=== PATIENT | male | born 1965 | race Caucasian/White ===

== ENCOUNTER 2018-12-26 12:33 | Inpatient (IN) ==
[2018-12-26 15:51] LABS: BASO# 0.05 X1000 (0.0-0.2); BASO% 0.6 % (0.0-0.8); EOS# 0.14 X1000 (0.0-0.7); EOS% 1.7 % (0.0-10.0); HEMATOCRIT 59.8 % (42.0-52.0); HEMOGLOBIN 19.1 g/dL (14.0-18.0); IMM GRAN# 0.03 X1000 (0.0-0.04); IMM GRAN% 0.4 % (0.0-0.5); LYMPH# 1.86 X1000 (1.2-3.4); LYMPH% 22.5 % (20.5-51.1); MCH 29.8 PG (27-31); MCHC 31.9 g/dL (33-37); MCV 93.4 FL (81-99); MONO# 0.53 X1000 (0.11-0.59); MONO% 6.4 % (1.7-9.3); MPV 9.4 FL (7.4-10.4); NEUT# 5.67 X1000 (1.4-6.5); NEUT% 68.4 % (42.2-75.2); PLT 178 X1000 (130-400); RDW 14.7 % (11.5-14.5); WBC 8.28 X1000 (4.8-10.8)
[2018-12-26 15:56] LABS: INR 0.89; PROTIME 12.8 Seconds (11.0-16.0)
[2018-12-26 15:57] LABS: PTT 29.8 Seconds (22.3-41.8)
[2018-12-26 16:19] LABS: AGAP 13; ALB/GLOB RATIO 1.1; ALBUMIN 4.2 g/dL (3.5-5.0); ALKALINE PHOSPHATASE 104 U/L (32-122); BUN 12 mg/dL (8-22); CALCIUM 9.6 mg/dL (8.8-10.2); CHLORIDE 96 mmol/L (98-107); COSMO 280; CREATININE 0.9 mg/dL (0.7-1.2); ESTIMATED GFR > 60; GLUCOSE 117 mg/dL (70-104); GOT 16 U/L (10-34); GPT 22 U/L (10-44); SODIUM 140 mmol/L (136-145); TCO2 31 mmol/L (25-35); TOTAL BILIRUBIN 0.34 mg/dL (0.20-1.00); TOTAL PROTEIN 8.1 g/dL (6.3-8.3)
--- NOTE | 2018-12-26 16:22 | PROVIDER DOCUMENTATION ---
This chart was entered by Hilda Taylor Scribe, acting as scribe for Sumi Munoz MD. HPI-General Adult - General Chief Complaint: High Blood Sugar Stated Complaint: UNRESPONSIVE Time Seen by Provider: 12/26/18 14:56 Source: patient Allergies/Adverse Reactions: Patient Allergies Allergy/AdvReac Type Severity Reaction Status Date / Time No Known Allergies Allergy Verified 12/26/18 14:19 Home Medications: Home Medication List Medication Instructions Recorded Confirmed Last Taken Type Albuterol Sulfate Inhaler 2 puff INH Q6H PRN PRN #1 inhaler 02/03/15 Unknown Rx [Ventolin Hfa] Amoxicillin [Amoxil] 875 mg PO Q12HR #20 tablet 02/03/15 Unknown Rx Aspirin [Aspirin EC] 81 mg PO DAILY 02/03/15 02/03/15 02/03/15 04:00 History Cyclobenzaprine [Flexeril] 10 mg PO TID PRN PRN #12 tablet 02/03/15 Unknown Rx Prednisone 20 mg PO DAILY #10 tablet 02/03/15 Unknown Rx - History of Present Illness -Gen Adult Nature of Presenting Problems: Patient is a 53 year old male who presents to the ED via EMS for elevated blood sugar. Patient's sister in law states patient's blood sugar was in the 400's and the family was having a hard time waking the patient up. EMS states FSBS was 117 on their arrival. Patient denies chest pain. Patient states he is on 4 L of home O2. Location of Pain/Injury: reports: none Pain Radiation: reports: no radiation Quality of Pain: reports: none Severity: reports: mild Onset/Duration: reports: just prior to arrival Timing: reports: gone now Context/Activities at Onset: reports: light activity Modifying Factors: improves with: nothing Associated Symptoms: reports: denies symptoms Similar Symptoms Previously?: No Recently seen or treated by another doctor?: No - Diabetes Related Context Context: reports: high blood sugar Review of Systems - Adult - REVIEW OF SYSTEMS - ADULT Constitutional: reports: no symptoms reported Eyes: reports: no symptoms reported Ears, Nose, Mouth & Throat: reports: no symptoms reported Cardiovascular: reports: no symptoms reported Respiratory: reports: no symptoms reported Gastrointestinal: reports: no symptoms reported Genitourinary: reports: no symptoms reported Musculoskeletal: reports: no symptoms reported Integumentary: reports: no symptoms reported Neurological: reports: no symptoms reported Psychiatric: reports: no symptoms reported Endocrine: reports: no symptoms reported Hematologic/Lymphatic: reports: no symptoms reported Allergic/Immunologic: reports: no symptoms reported All Other Systems: Reviewed and Negative Past History - Adult - PAST MEDICAL HISTORY-ADULT Review of Records: reports: Nursing Assessment Review, Medications Reviewed, Social history reviewed & non-contributory. Major Childhood Illnesses: reports: denies history Cardiovascular: reports: CHF Respiratory: reports: sleep apnea Gastrointestinal: reports: GERD Obstetrical/Gynecological: reports: denies history Genitourinary: reports: denies history Musculoskeletal: reports: denies history Neurological: reports: denies history Psychiatric: reports: denies history Endocrine/Immune: reports: Diabetes Other Conditions: reports: denies history - PRIOR SURGERIES/PROCEDURES Surgical/Procedure History: reports: reviewed, not pertinent - IMMUNIZATION STATUS Childhood Immunizations: See Nurse Assessment Flu Vaccine: See Nurse Assessment - FAMILY HISTORY Family History: reviewed, not pertinent - SOCIAL HISTORY Smoking: cigarettes, greater than 1 pack/day Provider spent 3-5 mins advising pt. on dangers of tobacco.: Discussed manners to quit use, and f/u contacts for add'l counseling. Substance Use: alcohol, marijuana Living Situation: family Physical Exam-General - PHYSICAL EXAM-ADULT Initial Vital Signs Reviewed: Yes - CONSTITUTIONAL General Appearance: alert, no apparent distress, obese - NECK Neck: non-tender, normal inspection - RESPIRATORY Respiratory: chest non-tender, lungs clear, normal breath sounds - CARDIOVASCULAR Cardiovascular: normal peripheral pulses, regular rate, rhythm - GASTROINTESTINAL (ABDOMEN) Abdominal Exam: normal bowel sounds, non tender, soft - MUSCULOSKELETAL Extremity: erythema (bilateral lower extremities), swelling (bilateral lower extremities), tenderness (bilateral lower extremities), other (venous dermatitis to bilateral lower extremities) - NEUROLOGIC Neurologic: grossly normal - PSYCHIATRIC Psych/Mental Status: normal mood/affect, oriented x 3 Progress - PLAN OF CARE/RESULTS Progress/Plan/Lab Results: Vital Signs - 8 hr 12/26/18 12:36 12/26/18 14:18 12/26/18 14:42 Temperature 97.8 F 98.0 F Pulse Rate 81 78 74 Respiratory Rate 18 16 20 Blood Pressure 178/84 145/89 145/89 O2 Sat by Pulse Oximetry 98 94 L 92 L Orders Category Date Time Status Cardiac Monitoring DIRECTED Care 12/26/18 15:06 Active Finger Stick Blood Sugar (ED) DIRECTED Care 12/26/18 15:06 Active Misc. NRSG Communication Order DIRECTED Care 12/26/18 15:06 Active Saline Loc NOW Care 12/26/18 15:06 Active CBC WITH ELECTRONIC DIFF [HEME] Stat Lab 12/26/18 15:06 Uncollected COMPREHENSIVE METABOLIC PANEL [CHEM] Stat Lab 12/26/18 15:06 Uncollected PROTIME WITH INR [COAG] Stat Lab 12/26/18 15:06 Uncollected PTT [COAG] Stat Lab 12/26/18 15:06 Uncollected TROPONIN T Stat Lab 12/26/18 15:06 Uncollected URINALYSIS W/POSS RFLX CULT [URINALYSIS] Stat Lab 12/26/18 15:06 Uncollected EKG [EKG] Stat Ther 12/26/18 15:06 Ordered Result Diagrams: 12/27/18 04:54 12/27/18 04:54 - REASSESSMENT Reassessment #1 Time Reassessed: 17:16 Status: improving - CONSULTS/PCP/HOSPITALIST Notification #1 *Consult/PCP/Hospitalist*: CONG Blakely for Hospitalist Time Discussed: 17:48 Reason/Comments: Dr. Munoz consulted with Zora about patient. Consult Disposition: Will see in ED, Admit Departure - Departure Date of Disposition Decision: 12/26/18 Time of Disposition Decision: 17:49 DIAGNOSIS: Hypercapnic respiratory failure Disposition: ADMITTED INPATIENT 09 Certified Medical Emergency: Emergent Condition: Stable - Critical Care Note This patient required my direct & personal management of CC.: Yes Total Time (mins): 31 Critical Care Statement: This patient required my direct personal management to treat or rule out processes, the absence of which, could potentiallly result in sudden, clinically significant life or limb threatening deterioration. Attestation - Physician/ ESTRELLITA Attestation The physician spent face to face time with patient:: Yes Advanced Practice Provider documentation review:: Supervising physician onsite and consulted in the evaluation and care of this patient. The physician did have a face to face encounter with the patient. This chart was documented by the indicated scribe, (Hilda Taylor Scribe) and accurately reflects the services I performed and decisions made by me, Sumi Munoz MD, as attested by the provider's signature.
[2018-12-26 16:28] LABS: URINE SOURCE CLEAN CATCH
[2018-12-26 16:38] LABS: BILIRUBIN URINE NEGATIVE (NEGATIVE); BLOOD URINE MODERATE (NEGATIVE); COLOR YELLOW; GLUCOSE URINE NEGATIVE (NEGATIVE); KETONE URINE NEGATIVE (NEGATIVE); LEUKOCYTES URINE NEGATIVE (NEGATIVE); NITRITE URINE NEGATIVE (NEGATIVE); PH URINE 6.5; PROTEIN URINE >600 mg/dL (NEGATIVE); SP GRAVITY URINE 1.015; TURBIDITY URINE CLEAR (CLEAR); UR EPITHELIAL CELLS <10 /HPF (<10); URINE BACTERIA NEGATIVE /HPF; URINE RBC <10 /HPF (<10); URINE WBC <10 /HPF (<10); UROBILINOGEN URINE NORMAL (NORMAL)
[2018-12-26 17:39] LABS: ALLEN TEST YES; BE 5.3 mmoll (-3.0-3.0); BLOOD TYPE ARTERIAL; HCO3-(ACT) 28.4 mmoll (20.0-26.0); METHB 0.5 % (0.0-1.5); O2(CT) 20.4 mL/dL (15.0-23.0); SAMPLE BLOOD; SAO2 84.1 % (95.0-100.0); THB 18.1 g/dL (11.5-17.4); pH(98.6) 7.24 (7.35-7.45)
[2018-12-26 17:43] LABS: MODALITY CANNULA; O2HB 80.6 % (95.0-99.0); PCO2(98.6) 87 mmHg (35-45); PO2(98.6) 46 mmHg (60-100)
--- NOTE | 2018-12-26 18:18 | Diag Imaging Result Doc PS360 ---
EXAM: CT HEAD W/O CONTRAST INDICATION: Altered mental status, Polycythemia Vera TECHNIQUE: This exam was performed using automated exposure control, adjustment of mA or kV according to patient size, and/or use of iterative reconstruction technique. COMPARISON: None. FINDINGS: There is a 9 mm ringlike mass involving the subcortical white matter of the left frontal lobe with surrounding vasogenic edema that is highly suspicious for neoplasm, likely a metastatic lesion from an unknown primary. There is no hydrocephalus and no evidence of midline shift. No other intracranial mass can be identified. No acute infarct is identified. The surrounding soft tissues and bony structures are essentially unremarkable. IMPRESSION: Left frontal lobe 9 mm mass with surrounding vasogenic edema that is suspicious for neoplasm, probably metastatic disease from an unknown primary. Electronically signed by Milton Pruitt 12/26/2018 6:17 PM
--- NOTE | 2018-12-26 19:28 | Diag Imaging Result Doc PS360 ---
EXAM: CHEST-PORTABLE INDICATION: COPD TECHNIQUE: One view COMPARISON: 02/03/2015 FINDINGS: The lungs are grossly clear. There is no discrete pleural fluid collection or pneumothorax. The cardiomediastinal silhouette and central vasculature are grossly unremarkable accounting for magnification from AP technique. IMPRESSION: No evidence of acute pathology by plain radiograph. Electronically signed by Milton Pruitt 12/26/2018 7:27 PM
[2018-12-26] MEDS ORDERED: VANCOMYCIN IV PER PHARMACY MISC SCH (21:01)
[2018-12-26] MEDS ORDERED: NS 1,000 ML IV SCH (21:01)
[2018-12-26] MEDS: HUMALOG SUBQ SCH (21:01)
[2018-12-26] MEDS: DUONEB (A & A) INH SCH ×2 (21:01→23:30)
[2018-12-26] MEDS ORDERED: ZOFRAN IV PRN (21:01)
[2018-12-26] MEDS ORDERED: DUONEB (A & A) INH PRN (21:01)
[2018-12-26] MEDS ORDERED: LEVAQUIN 500 MG/D5W 500 MG/100 ML IVPB IV SCH (21:01)
[2018-12-26] MEDS ORDERED: TYLENOL PO PRN (21:08)
[2018-12-26] MEDS: ZOSYN 3.375 GM in NS 50 ML IV SCH (21:15)
[2018-12-26 21:26] LABS: ALLEN TEST YES; BE 6.6 mmoll (-3.0-3.0); BLOOD TYPE ARTERIAL; HCO3-(ACT) 29.8 mmoll (20.0-26.0); O2(CT) 22.8 mL/dL (15.0-23.0); O2HB 89.6 % (95.0-99.0); PO2(98.6) 71 mmHg (60-100); SAMPLE BLOOD; SAO2 93.3 % (95.0-100.0); THB 18.1 g/dL (11.5-17.4)
[2018-12-26 21:27] LABS: MODALITY BI PAP
[2018-12-26 21:29] LABS: PCO2(98.6) 103 mmHg (35-45)
[2018-12-26] MEDS ORDERED: VANCOMYCIN 2,000 MG in NS 500 ML IV SCH (23:00)
[2018-12-26] MEDS: MORPHINE IV PRN (23:53)
[2018-12-26] MEDS: SOLU-MEDROL IV SCH (23:53)
[2018-12-27] MEDS: ZOSYN 3.375 GM in NS 50 ML IV SCH ×3 (02:15→08:24)
[2018-12-27] MEDS: DUONEB (A & A) INH SCH ×6 (03:26→23:38)
--- NOTE | 2018-12-27 03:46 | HISTORY AND PHYSICAL ---
PRIMARY CARE PROVIDER: CONG Webb CHIEF COMPLAINT: Per [id number] at bedside, he has been feeling bad over the last couple of weeks. He has had increase in bilateral lower extremity swelling. HISTORY OF PRESENT ILLNESS: They called EMS secondary to not being able to wake him up today. He carries a past medical history of COPD on home O2 and takes Lasix as his only home medication for heart failure. Workup in the ED revealed acute hypoxemic hypercarbic respiratory failure. He was placed on BiPAP. Head CT and chest x-ray are currently pending. He will be admitted to the ICU on BiPAP with a pulmonary consult. PAST MEDICAL HISTORY: Hypertension, COPD on home O2, congestive heart failure, diabetes mellitus. PAST SURGICAL HISTORY: Reported none. FAMILY HISTORY: Unknown. SOCIAL HISTORY: Patient is a 3-jhok-nwy-day smoker. He lives at home with his , who is homebound. ALLERGIES: No known drug allergies. HOME MEDICATIONS: Have not been reconciled. Per patient and [id number], he only takes Lasix at home. REVIEW OF SYSTEMS: On 14 point review of systems, the patient reported shortness of breath, bilateral lower extremity swelling. He did report generalized not feeling well over the last few weeks and bilateral lower extremity edema. He denied any headache, chest pain, nausea/vomiting, diarrhea. PHYSICAL EXAMINATION: VITAL SIGNS: Temperature is 97.8 degrees, heart rate 63, respirations 15, blood pressure 180/93, O2 is 93% on BiPAP. GENERAL: Mr. Puri is sitting up in the stretcher in no acute distress on BiPAP. HEENT: He does have some periorbital edema. Atraumatic, normocephalic. DUANE. NECK: Supple. Trachea midline. CARDIOVASCULAR: S1, S2 appreciated. No murmurs, gallops, or rubs noted. RESPIRATORY: Lung sounds could not appreciate much air movement throughout all lung buenrostro, bilaterally decreased in the bases. Did not appreciate any rales, rhonchi, or wheezes. GASTROINTESTINAL: Obese, soft, nontender. Hypoactive bowel sounds 4 quadrants. EXTREMITIES: Bilateral lower extremities were warm to the touch and erythematous. There was no oozing. NEUROLOGICAL: No focal deficits noted. He follows commands. He answered questions as much as he could with the BiPAP on. Most history was taken from the fprvmf-od-vqz at bedside. DIAGNOSTIC DATA: Pending head CT. Pending chest x-ray. Pending EKG. LABORATORY DATA: White count 8, hemoglobin 19, hematocrit 59, platelet count is 178,000. ABG: pH 7.24, pCO2 of 87, PO2 of 46, bicarbonate 28, base excess 5.3, oxyhemoglobin was 80.6, O2 saturation 84% on 3 L nasal cannula. Sodium 140, potassium 5.0, BUN 12, creatinine 0.9, blood glucose is 117. Troponin less than 0.010. Urinalysis was negative. ASSESSMENT AND PLAN: 1. Acute hypoxemic hypoxic respiratory failure secondary to chronic obstructive pulmonary disease (COPD) exacerbation. We are currently pending chest x-ray. We will continue with IV antibiotics, bronchodilators, BiPAP. Reassess his ABG. Aggressive pulmonary toilet. Place him in the ICU for observation overnight. Consult Pulmonology. Continue with IV steroids. 2. Chronic obstructive pulmonary disease (COPD) exacerbation. See #1. 3. Metabolic encephalopathy secondary to numbers [address] is currently pending. The patient does now seem more awake and alert while on BiPAP. We will continue to monitor. 4. 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 We will continue with gentle hydration. DVT prophylaxis with a Lovenox. Possibly will need to be discharged on aspirin. 5. Diabetes mellitus, type 2. We will continue with patterned blood sugars and sliding scale insulin. Check a hemoglobin A1c. 6. Bilateral lower extremity cellulitis. We will continue with IV antibiotics. 7. History of congestive heart failure. Patient does take p.o. Lasix. We will check a proBNP. Continue to follow his chest x-ray. 8. Brain metastasis. Will order a CT of the chest abdomen and pelvis. Will consult oncology for further recommendations. Further recommendation to follow physician evaluation, laboratory, and diagnostic data. Dictated by CONG Barrera for Cindy Rodriguez MD cc: MD Demi Aragon MD I performed a face to face encounter on the patient. I reviewed all labs and imaging on the patient. I agree with the H&P as dictated. The patient presented to the ER with a chief complaint of generalized weakness, respiratory failure and swelling in his lower extremities. On exam, the patient as alert and on BIPAP. His breath sounds are coarse to auscultation bilaterally. He has 3+ edema in his lower extremities with erythema. The patient will be admitted with a diagnosis of acute on chronic hypercapnic and hypoxemic respiratory failure, bilateral lower extremity cellulitis, polycythemia, and brain metastasis. The patient is critically ill and will be admitted to the ICU. Will continue on BIPAP support. Blood and sputum cultures have been ordered. Will start broad spectrum antibiotics and bronchodilator therapy. Will also consult the oncologist due to brain metastasis seen on CT of the head. The church administrator will also be consulted. MAYUR
[2018-12-27 05:09] LABS: BASO# 0.02 X1000 (0.0-0.2); BASO% 0.2 % (0.0-0.8); EOS# 0.03 X1000 (0.0-0.7); EOS% 0.3 % (0.0-10.0); HEMATOCRIT 60.7 % (42.0-52.0); HEMOGLOBIN 18.4 g/dL (14.0-18.0); IMM GRAN# 0.02 X1000 (0.0-0.04); IMM GRAN% 0.2 % (0.0-0.5); LYMPH# 0.68 X1000 (1.2-3.4); LYMPH% 6.2 % (20.5-51.1); MCH 28.7 PG (27-31); MCHC 30.3 g/dL (33-37); MCV 94.5 FL (81-99); MONO# 0.11 X1000 (0.11-0.59); MPV 9.6 FL (7.4-10.4); NEUT# 10.18 X1000 (1.4-6.5); NEUT% 92.1 % (42.2-75.2); PLT 163 X1000 (130-400); RBC 6.42 XMIL (4.7-6.1); RDW 14.6 % (11.5-14.5); WBC 11.04 X1000 (4.8-10.8)
[2018-12-27 05:24] LABS: HEMOGLOBIN A1C 6.6 % (4.8-6.0)
[2018-12-27] MEDS: SOLU-MEDROL IV SCH ×3 (06:09→21:55)
[2018-12-27 06:25] LABS: AGAP 14; ALB/GLOB RATIO 0.9; ALBUMIN 3.7 g/dL (3.5-5.0); ALKALINE PHOSPHATASE 104 U/L (32-122); BUN 11 mg/dL (8-22); CALCIUM 8.6 mg/dL (8.8-10.2); CHLORIDE 93 mmol/L (98-107); COSMO 278; CREATININE 0.9 mg/dL (0.7-1.2); ESTIMATED GFR > 60; GLUCOSE 255 mg/dL (70-104); GOT 23 U/L (10-34); GPT 30 U/L (10-44); POTASSIUM 4.7 mmol/L (3.5-5.1); SODIUM 135 mmol/L (136-145); TCO2 28 mmol/L (25-35); TOTAL BILIRUBIN 0.36 mg/dL (0.20-1.00); TOTAL PROTEIN 7.8 g/dL (6.3-8.3)
[2018-12-27 06:49] LABS: LYMPHS 6 % (21-51); MONO 1 % (1-9); SEGS 93 % (42-75)
--- NOTE | 2018-12-27 06:53 | Diag Imaging Result Doc PS360 ---
CHEST-PORTABLE - 12/27/2018 INDICATION: short of breath COMPARISON: 12/26/2018 FINDINGS: Stable cardiomegaly and pulmonary vascular congestion. Stable faint interstitial infiltrates bilaterally. This likely represents pulmonary edema. No large pleural effusion. IMPRESSION: No change from prior. Electronically signed by Teo Luz 12/27/2018 6:50 AM
[2018-12-27 07:16] LABS: ALLEN TEST YES; BE 5.9 mmoll (-3.0-3.0); BLOOD TYPE ARTERIAL; HCO3-(ACT) 29.3 mmoll (20.0-26.0); METHB 0.7 % (0.0-1.5); O2(CT) 23.2 mL/dL (15.0-23.0); O2HB 90.4 % (95.0-99.0); PO2(98.6) 71 mmHg (60-100); SAMPLE BLOOD; SAO2 93.3 % (95.0-100.0); THB 18.3 g/dL (11.5-17.4); pH(98.6) 7.21 (7.35-7.45)
[2018-12-27 07:20] LABS: PCO2(98.6) 98 mmHg (35-45)
[2018-12-27 07:22] LABS: MODALITY CANNULA
[2018-12-27] MEDS: HUMALOG SUBQ SCH ×4 (08:10→21:55)
[2018-12-27] MEDS: PROTONIX IV SCH (08:10)
[2018-12-27] MEDS: SODIUM CHLORIDE 0.9% INJ SCH (08:12)
[2018-12-27] MEDS ORDERED: LOVENOX SUBQ SCH (09:00)
[2018-12-27] MEDS ORDERED: KEFZOL 2 GM/D5W 2 GM/50 ML IVPB IV SCH (09:15)
--- NOTE | 2018-12-27 09:58 | Diag Imaging Result Doc PS360 ---
EXAM: CT THORAX/ABD/PELVIS W/CON 12/27/2018 HISTORY: brain mets TECHNIQUE: This exam was performed using automated exposure control, adjustment of mA or kV according to patient size, and/or use of iterative reconstruction technique. COMMENT: Thorax: The current examination is compared with the previous study of 04/12/2014. There is extensive mediastinal adenopathy including the subcarina, precarinal and right paratracheal region and aorticopulmonary window nodes. There is a right paratracheal node measuring in excess of 4.2 cm in AP dimension. This was not the case at the time the previous study although there were fairly large aorticopulmonary window nodes at the time the previous study the largest and more cystic anterior of which measured over 2.4 cm at that time, slightly larger than the 2.3 cm on today's study. Compared to the previous study the patchy opacities which were present particularly in the right upper lobe on the previous examination have largely resolved. There are some atelectatic changes in the right middle lobe medially which were not present previously. There is a small nodule in the right middle lobe present on image 66 measuring 6 mm in diameter which is not clearly identifiable on the previous study. This is fairly dense but not calcified. There are some atelectatic changes in the inferior portion of the lingula. ABDOMEN: No previous abdominal studies are available for comparison, where possible this is compared with the previous thoracic study. There are multiple periesophageal nodes particularly just above the hiatus. These were not apparent at the time the previous examination although most of the nodes are located below the level of the previous exam. One such node measures is much as 2.4 cm in long axis. There are numerous cholesterol stones in the gallbladder measuring over a centimeter in size. The spleen is slightly enlarged measuring over 13.4 cm in AP dimension. The adrenal glands are not enlarged. The pancreas is unremarkable in appearance. The kidneys are without evidence of hydronephrosis or mass. There is a 16 mm right retrocrural node. There is a 13 mm node just below the left renal vein. There are multiple smaller periaortic and iliac nodes. There is no evidence of bowel obstruction. Pelvis: The appendix is not distended. The urinary bladder is not distended. There is bilateral external iliac adenopathy. There are some fairly large inguinal nodes bilaterally. There are spondylotic changes in the lumbar spine and some old rib fractures. No evidence of acute bony abnormality is present. IMPRESSION: 1. Mediastinal adenopathy which on balance is worse than on 04/12/2014. Improved pulmonary parenchymal findings from that time. 2. Minimal splenomegaly and periaortic and external iliac adenopathy. Adenopathy just above the hiatus and in the right retrocrural space. In view of the lack of an obvious primary malignancy, lymphoma should be considered. 3. Cholelithiasis. Electronically signed by Alban Kearns 12/27/2018 9:55 AM
--- NOTE | 2018-12-27 10:00 | INFECTIOUS DISEASE CONSULT REP ---
DATE: 12/27/2018 CONCLUSION: The patient has bilateral leg cellulitis. He is predisposed to this by having chronic leg edema. RECOMMENDATIONS: I have discontinued his current antibiotics and placed the patient on Ancef. I have also ordered that the patient should elevate his legs as long as possible and also that the patient should have the foot of his bed elevated with the manual Gatch. DISCUSSION: The patient was lethargic and he had a BiPAP mask on. He was unable to give a history. My information came from the computer. The patient was admitted to the hospital with increasing leg edema and erythema. Also, he became very lethargic. His tests thus far show on chest x-ray, cardiomegaly with pulmonary vascular congestion. CBC has a white count of 11,040, hemoglobin 18.4, and platelet count a 163,000. Blood gases show a pH of 7.21, a pO2 of 71, and a pCO2 of 98. Creatinine is 0.9. GFR is greater than 60. Liver function studies are normal. Urinalysis had no white cells or bacteria. Swab for influenza was negative. Sputum and blood cultures are pending. REVIEW OF SYSTEMS: Unable to do. PAST MEDICAL HISTORY: Positive for hypertension, COPD, congestive heart failure , and diabetes mellitus. PAST SURGICAL HISTORY: None. FAMILY HISTORY: Unknown. SOCIAL HISTORY: The patient smokes cigarettes. He lives at home with his . ALLERGIES: He has no known drug allergies. HOME MEDICATIONS: Include albuterol inhaler, amoxicillin, aspirin, Flexeril, and prednisone. REVIEW OF SYSTEMS: Unable to be obtained. PHYSICAL EXAMINATION: Vital Signs: Temperature is 98 degrees, pulse 96, respirations 23, blood pressure 134/75. He is 5 feet 11 inches tall and weighs 305 pounds. General: This is a morbidly obese, middle-aged male. He is lethargic. I was able to arouse him somewhat. The patient was, for the most part, lethargic. It may have been due to respiratory failure. Head, Eyes, Ears, Nose, and Throat: No drainage was noted from the nose or ears. Neck: No stiffness. Thorax: Increased AP diameter of the chest. Lungs: There were bibasilar rales. Cardiovascular: Heart rate is regular. Abdomen: Somewhat protuberant, soft, and not tender. Extremities: Both legs are edematous and erythematous. I think the right leg is more erythematous than the left. Neurologic: The patient is lethargic. He does not have a tremor. He did not answer questions and he did not follow requests to move his extremities. Integument: No rash noted. The patient did not have scaling between the toes. Thank you for the consult. cc: Miki Pedraza MD MTDD
--- NOTE | 2018-12-27 10:03 | Diag Imaging Result Doc PS360 ---
EXAM: CT HEAD W/CONTRAST 12/27/2018 HISTORY: BRAIN METS TECHNIQUE: This exam was performed using automated exposure control, adjustment of mA or kV according to patient size, and/or use of iterative reconstruction technique. COMMENT: There is an enhancing nodule present in the left posterior frontal lobe measuring 9.2 mm in diameter. This is associated with increased precontrast density is seen on 12/26/2018 and vasogenic edema surrounding the enhancing nidus. The degree of mass effect has not changed appreciably since the previous study. There is an enhancing nodule present laterally in the right cerebellar hemisphere on image 12 measuring 6 mm in diameter. IMPRESSION: Enhancing nodules in the left frontal and right cerebellar hemispheres, consistent with metastatic disease or cerebral lymphoma. Electronically signed by Alban Kearns 12/27/2018 10:00 AM
[2018-12-27] MEDS: KEFZOL 2 GM/D5W 2 GM/50 ML IVPB IV SCH ×2 (11:57→19:52)
[2018-12-27 12:53] LABS: ALLEN TEST YES; BE 4.1 mmoll (-3.0-3.0); BLOOD TYPE ARTERIAL; METHB 0.6 % (0.0-1.5); O2(CT) 24.4 mL/dL (15.0-23.0); O2HB 95.8 % (95.0-99.0); PO2(98.6) 141 mmHg (60-100); SAMPLE BLOOD; SAO2 97.8 % (95.0-100.0); SRATE 12 BPM; pH(98.6) 7.23 (7.35-7.45)
[2018-12-27 12:55] LABS: MODALITY BI PAP; PCO2(98.6) 86 mmHg (35-45)
--- NOTE | 2018-12-27 13:14 | CONSULTATION ---
DATE OF CONSULTATION: 12/27/2018 REASON FOR CONSULT: Brain mass and vasogenic edema. HISTORY OF PRESENT ILLNESS: This is a 53-year-old, right handed male with history of heart failure, diabetes, hypertension, COPD. He was brought to the emergency department yesterday as his family was having a difficult time waking him up. Family also noted his blood sugar was above 400, though EMS reported it was in the 100s when they arrived. History is from chart review as the patient is unable to provide a detailed history. Apparently he had been feeling bad over the last few weeks prior to coming in. He had increasing bilateral lower extremity edema and some shortness of breath. As the family had a difficult time waking him he was brought to the emergency room for evaluation. He was found to have hypercapnic respiratory failure and was placed on BIPAP. He was initially refusing BIPAP for some time before finally agreeing to it. Head CT revealed a 9 mm diameter left posterior frontal enhancing nodule as well as a 6 mm diameter right cerebellar enhancing nodule concerning for metastatic disease or lymphoma. There is some vasogenic edema associated with the frontal nodule, which has not changed in degree on the second CT compared to the first. His mental status did improve and he woke up more during his time in the emergency department thus far. Again, at one point he was demanding to go home and refusing BIPAP. He was noted to be oriented x3. PAST MEDICAL HISTORY: Hypertension, COPD on home O2, continued tobacco use, congestive heart failure, diabetes. FAMILY HISTORY: Unobtainable due to patient factors. SOCIAL HISTORY: He smokes 2 packs of cigarettes per day. He is and lives with his . There is alcohol use and I believe marijuana. ALLERGIES: No known drug allergies listed. HOME MEDICATIONS: I believe are only Lasix. Current medications are reviewed in the chart and include: Cefazolin, p.r.n. morphine, Solu-Medrol. REVIEW OF SYSTEMS: Unobtainable due to patient factors. History performed yesterday indicates shortness of breath, lower extremity swelling, and that he denies headache, chest pain, nausea, vomiting, and diarrhea. PHYSICAL EXAMINATION: Vital signs: Afebrile. Blood pressure 178/84 on admission, currently 159/69. Pulse 90s. Respirations 20. Mr. Puri is supine on the bed on BIPAP currently, resting with eyes closed. He is morbidly obese. There is a paucity of speech with the BIPAP on, but he occasionally uses short answers for questions that are appropriate. He follows simple commands consistently. He does not answer all orientation questions at this time, but he does know that he is in the hospital. Pupils are equal, mytotic, and briskly reactive to bright light. Gaze conjugate and forward, there is horizontal movement with passive head turning. Corneals intact. Face appears to be symmetric. No meningismus. Tone is symmetric in the limbs. He has normal power in the upper extremities that is symmetric. In the lower extremities he is at least antigravity and symmetric. He indicates symmetric sensation to light touch in the extremities. He also responds to stimulus in all extremities. Reflexes are diminished symmetric throughout. No clonus. He is not attentive enough for [id number] and also not for direct confrontational visual field testing but does blink to threat. DIAGNOSTICS: He has had a noncontrasted and contrasted head CT, those were both personally reviewed, there is an enhancing nodule in the left frontal and right cerebellar hemisphere as detailed above, felt consistent with metastatic disease or cerebral lymphoma. CT of the chest, abdomen, and pelvis showed mediastinal adenopathy, worse than on 2014 study, but no obvious primary malignancy. White count 11 today, normal on admission. PH 7.2, PCO2 103, PO2 71, FIO2 50%. Sodium 135, BUN and creatinine normal, blood sugar 117-291, A1c 6.6, calcium 8.6, AST, ALT, alkaline phosphatase all normal. Urinalysis reviewed, there is no urine toxicology. ASSESSMENT AND PLAN: 1. Global encephalopathy, multifactorial. Apparent improvement since arrival, which is reassuring. I would continue correcting his underlying respiratory dysfunction, his blood sugars, and minimizing sedating medications as able. Given the newly discovered brain lesions I will also order a routine EEG to evaluate for increased propensity to seizure as a cause of his initial poor responsiveness noted at home. Would suggest urine toxicology. 2. Enhancing nodules in the left frontal and right cerebellar regions concerning for malignancy. He will need malignancy workup as indicated per primary and oncology. He is currently receiving Solu-Medrol for the vasogenic edema associated with the frontal lesion. Thank you for this consultation. cc: Asya Cummings MD [facility]
[2018-12-27] MEDS ORDERED: VANCOMYCIN IV PER PHARMACY MISC SCH (17:30)
--- NOTE | 2018-12-27 17:39 | CONSULTATION ---
DATE OF CONSULTATION: 12/27/2018 REQUESTING PROVIDER: CONG Barrera. REASON FOR CONSULTATION: Respiratory failure on BiPAP and COPD. HISTORY OF PRESENT ILLNESS: This is a 53-year-old male with a medical history of COPD, obstructive sleep apnea, congestive heart failure, hypertension, diabetes mellitus type 2, gastroesophageal reflux disease, tobacco abuse, polycythemia vera and morbid obesity. He presented to the ER yesterday afternoon via EMS as his family was having difficulty waking him up. Family reported that his blood sugar was over 400 at home, although EMS found FSBS 117 on their arrival. In the ER CXR revealed no evidence of acute pathology. Head CT revealed left frontal lobe 9 mm mass with surrounding vasogenic edema that is suspicious for neoplasm, probably metastatic disease from an unknown primary. Lab revealed pH 7.24, pCO2 87, PO2 46, HC03 28.4, base excess 5.3, oxyhemoglobin 80.6, and proBNP 1,460. He has been admitted to the ICU for further evaluation and management. At the time of my examination, patient is sitting on the bed with a nasal cannula at 4 L. The patient's in-laws are at the bedside. The patient reports he has been feeling sick for a few weeks. He has chronic cough with sputum at times, wheezing, shortness of breath , snoring, paroxysmal nocturnal dyspnea, and pedal edema. He noticed his pedal edema has been getting worse in the last couple of days. He also reports pain and itchiness on bilateral lower extremities. He denied headache, fever, chills, nausea, chest pain, or palpitations. PAST MEDICAL HISTORY: 1. COPD, on home oxygen at 4 L; using an inhaler which is a sample from his family doctor once a day at home -- Based on patient's description, I suspect that it is Breo. Not using any rescue inhalers as patient reports that he cannot afford it. 2. Obstructive sleep apnea, not using CPAP at home because the patient cannot afford it. Patient does report that he sleeps better with BiPAP and he would not mind to use it at all. 3. Congestive heart failure, taking Lasix at home. 4. Hypertension. 5. Diabetes mellitus type 2. 6. Gastroesophageal reflux disease. 7. Tobacco abuse, ongoing. 8. Polycythemia vera, undiagnosed. 9. Morbid obesity, current BMI 42.5. PAST SURGICAL HISTORY: None. SOCIAL HISTORY: The patient is and lives at home with his , who is homebound. He started smoking when he was 15 years old and currently smokes 2 packs per day. He tried to quit smoking before without medication and failed. He states he would like to quit smoking with medication but he cannot afford it. He also drinks alcohol and smokes marijuana at times. FAMILY HISTORY: Positive for cancer, diabetes, and heart problems. ALLERGIES: No known drug allergies. REVIEW OF SYSTEMS: A 10 point review of systems was conducted and the pertinent is listed within the HPI, otherwise noncontributory. PHYSICAL EXAMINATION: Vital Signs: Temperature 98, blood pressure 134/75, pulse 95, respiratory rate 26, oxygen saturation 95% on nasal cannula at 4 L. General: Morbidly obese, disheveled, sitting on the bed without acute distress noted. HEENT: Atraumatic. Trachea midline. Mucosa pink and slightly dry. Respiratory: Shallow and rapid. Lung expansion equal bilaterally with increased AP diameter of the chest. Diminished breathing sounds bibasilarly, otherwise clear to auscultation. Cardiovascular: Regular rate and rhythm without murmur noted. Gastrointestinal: Bowel sounds normoactive in all 4 quadrants. Nontender. Slightly firm and protuberant. Extremities: Bilateral lower extremities edematous and erythematous with tenderness and itchiness at times, tense and warm to the touch. Neurologic: Alert and oriented x3. Generalized weakness. Speech is fluent. Follows commands. IMAGING DATA: CT thorax, abdomen, and pelvis with contrast reveals mediastinal adenopathy which in balance is worse than April 12, 2014; Improved pulmonary parenchymal findings from that time; Minimal splenomegaly and periaortic and external iliac adenopathy; adenopathy just above the hiatus and in the right retrocrural space; In view of the lack of an obvious primary malignancy , lymphoma should be considered; and cholelithiasis. Head CT with contrast reveals enhanced nodules in the left frontal and right cerebellar hemispheres, consistent with metastatic disease or cerebral lymphoma. LAB DATA: White blood cell 11.04, hemoglobin 18.4, hematocrit 60.7, platelet 163,000. Sodium 135, potassium 4.7, chloride 93, carbon dioxide 28, BUN 11, creatinine 0.4, glucose 255. ABG: pH 7.21, pCO2 98, PO2 71, HC03 29.3, base excess 5.9, oxyhemoglobin 90.4. ASSESSMENT AND PLAN: This is a 53-year-old male with a medical history of chronic obstructive pulmonary disease, on home oxygen at 4 L, obstructive sleep apnea, congestive heart failure, hypertension, diabetes, gastroesophageal reflux disease, ongoing tobacco abuse, undiagnosed polycythemia vera and morbid obesity. He has been admitted to the ICU for acute hypoxemic hypercapnic respiratory failure, chronic obstructive pulmonary disease exacerbation, metabolic encephalopathy, and bilateral lower extremity cellulitis. 1. Acute, likely on chronic, hypoxemic and hypercapnic respiratory failure and chronic obstructive pulmonary disease exacerbation. Continue antibiotic, steroid, and bronchodilators. Continue supplemental oxygen and BiPAP at bedtime as needed. Follow with ABG, chest x -ray, CBC, and BMP. Follow up sputum culture and blood culture. 2. Obstructive sleep apnea. Continue BiPAP at bedtime and as needed. 3. Metabolic encephalopathy and brain metastasis with possible malignancy. The patient's mental status is clinically improved. Dr. Cummings is on board. 4. Bilateral lower extremity cellulitis. Dr. Pedraza is on board. 5. Tobacco abuse. Consider nicotine replacement therapy during his hospitalization, daily education on the need to quit smoking and the means of smoking sensation. 6. Continue gastrointestinal and deep vein thrombosis prophylaxis. Thank you for the courtesy of this consult. Dictated by CONG Block for Ok Gomez MD cc: CONG Block MD [facility]
--- NOTE | 2018-12-27 17:40 | PROGRESS NOTE ---
DATE: 12/27/2018 SUBJECTIVE: The patient is drowsy. OBJECTIVE: Vital signs: Temperature 98.8, pulse 91, respiratory rate is 24, blood pressure 176/95, oxygen saturation 98%. HEENT: He is atraumatic, normocephalic. Cardiovascular: S1, S2. Respiratory: Has evidence of good entry bilaterally. Abdomen: Obese, nontender. No masses felt. Extremities: Evidence of erythema in both lower extremities, as well as 1 to 2+ edema in both lower extremities. Central nervous system: The patient is somewhat lethargic. DIAGNOSTIC STUDIES: WBC is 11.04, hematocrit is 60.7, with a platelet count of 163,000. Sodium is 135, potassium 4.7, chloride is 93, bicarbonate 28, BUN is 11, creatinine 0.9. Arterial blood gas 7.23/86/141/97.8. X-ray of the chest shows evidence of no acute pathology noted. CT scan of the brain shows a left frontal lobe 9 mm mass with surrounding vasogenic edema that is suspicious for neoplasm, probably metastatic disease from unknown primary. ASSESSMENT AND PLAN: 1. Acute hypercapnic respiratory failure. The patient will require BiPAP to address the issue of CO2 retention. 2. Chronic obstructive pulmonary disease exacerbation. Maintain patient on nebulized bronchodilators, steroids, as well as antibiotics. 3. Probable metastatic disease. The patient's CT brain shows evidence of a 9 mm mass lesion with surrounding evidence of vasogenic edema. Suspicious for neoplasm, probably metastatic disease. Oncology as well as Neurology consulted. 4. Diabetes mellitus. Continue blood sugar monitoring, as well as sliding scale insulin. 5. Bilateral lower extremity cellulitis. Continue IV antibiotics. 6. Congestive heart failure. Obtain 2D echocardiogram of the heart. Maintain patient on diuretics. Monitor intakes and outputs, as well as daily weights. 7. Deep vein thrombosis (DVT) prophylaxis. Sequential compression devices. 8. Gastrointestinal (GI) prophylaxis. Proton pump inhibitor. 9. Erythrocytosis. Most likely secondary to COPD. cc: Chalino Rosas MD
--- NOTE | 2018-12-27 18:25 | INFECTIOUS DISEASE PROGRESS NO ---
DATE: 12/27/2018 ADDENDUM: The nurse of Jatinder Puri called me and said that the patient's blood culture has turned positive for gram-positive cocci. The patient already is on Ancef and I have ordered to start vancomycin. cc: Miki Pedraza MD
[2018-12-27] MEDS: VANCOMYCIN 2 GM in NS 500 ML IV SCH (21:55)
[2018-12-28] MEDS: DUONEB (A & A) INH SCH ×6 (03:36→23:33)
[2018-12-28] MEDS: SOLU-MEDROL IV SCH ×3 (04:06→20:12)
[2018-12-28] MEDS: KEFZOL 2 GM/D5W 2 GM/50 ML IVPB IV SCH ×2 (04:06→12:02)
[2018-12-28 05:31] LABS: HEMATOCRIT 54.4 % (42.0-52.0); HEMOGLOBIN 16.7 g/dL (14.0-18.0); IMM GRAN# 0.02 X1000 (0.0-0.04); IMM GRAN% 0.2 % (0.0-0.5); LYMPH# 0.71 X1000 (1.2-3.4); LYMPH% 6.9 % (20.5-51.1); MCH 29.5 PG (27-31); MCHC 30.7 g/dL (33-37); MCV 95.9 FL (81-99); MONO# 0.36 X1000 (0.11-0.59); MONO% 3.5 % (1.7-9.3); MPV 9.7 FL (7.4-10.4); NEUT# 9.22 X1000 (1.4-6.5); NEUT% 89.4 % (42.2-75.2); PLT 188 X1000 (130-400); RBC 5.67 XMIL (4.7-6.1); RDW 14.1 % (11.5-14.5); WBC 10.31 X1000 (4.8-10.8)
[2018-12-28 05:40] LABS: ALLEN TEST YES; BE 6.8 mmoll (-3.0-3.0); BLOOD TYPE ARTERIAL; HCO3-(ACT) 30.2 mmoll (20.0-26.0); PO2(98.6) 99 mmHg (60-100); SAMPLE BLOOD; pH(98.6) 7.22 (7.35-7.45)
[2018-12-28 05:41] LABS: MODALITY BI PAP; PCO2(98.6) 93 mmHg (35-45)
[2018-12-28 06:06] LABS: AGAP 9; BUN 12 mg/dL (8-22); CALCIUM 7.4 mg/dL (8.8-10.2); CHLORIDE 100 mmol/L (98-107); COSMO 291; CREATININE 0.8 mg/dL (0.7-1.2); ESTIMATED GFR > 60; GLUCOSE 278 mg/dL (70-104); POTASSIUM 5.2 mmol/L (3.5-5.1); SODIUM 141 mmol/L (136-145); TCO2 32 mmol/L (25-35)
[2018-12-28] MEDS: PROTONIX IV SCH (06:18)
[2018-12-28] MEDS: HUMALOG SUBQ SCH ×4 (06:18→20:12)
[2018-12-28 06:37] LABS: LYMPHS 7 % (21-51); MONO 2 % (1-9); SEGS 91 % (42-75)
--- NOTE | 2018-12-28 07:11 | Diag Imaging Result Doc PS360 ---
EXAM: CHEST-1 VIEW 12/28/2018 HISTORY: SOB TECHNIQUE: AP portable at 0537 COMMENT: There is cardiomegaly and increased pulmonary vascularity. There is increased interstitial opacity. This has not changed appreciably since 12/27/2018. IMPRESSION: Cardiomegaly and pulmonary edema. Electronically signed by Alban Kearns 12/28/2018 7:09 AM
[2018-12-28] MEDS: VANCOMYCIN 2 GM in NS 500 ML IV SCH (09:08)
--- NOTE | 2018-12-28 09:27 | EKG Report ---
Test Performed on : 12/28/2018 03:33:31 AM Test Reason : NO EKG ORDER FOR MUSE Blood Pressure : / mmHG Vent. Rate : 097 BPM Atrial Rate : 097 BPM P-R Int : 160 ms QRS Dur : 142 ms QT Int : 380 ms P-R-T Axes : 068 224 037 degrees QTc Int : 482 ms Normal sinus rhythm. Right bundle branch block Septal infarct , age undetermined Inferior infarct , age undetermined Abnormal ECG No previous ECGs available Confirmed by Jose Alfredo Monroy MD ([id number]) on 12/29/2018 7:07:41 AM
[2018-12-28 11:17] LABS: ALLEN TEST YES; BE 8.1 mmoll (-3.0-3.0); BLOOD TYPE ARTERIAL; HCO3-(ACT) 30.9 mmoll (20.0-26.0); METHB 0.8 % (0.0-1.5); O2(CT) 21.2 mL/dL (15.0-23.0); PO2(98.6) 54 mmHg (60-100); SAMPLE BLOOD; SAO2 90.7 % (95.0-100.0); pH(98.6) 7.31 (7.35-7.45)
[2018-12-28 11:18] LABS: MODALITY CANNULA; O2HB 88.9 % (95.0-99.0); PCO2(98.6) 76 mmHg (35-45)
--- NOTE | 2018-12-28 12:04 | PROGRESS NOTE ---
DATE: 12/28/2018 SUBJECTIVE: The patient is awake. Not in any obvious distress. OBJECTIVE: Vital signs: Temperature 98.2 degrees, pulse 99, respiratory rate 22, blood pressure is 140/80, oxygen saturation is 94%. HEENT: Atraumatic, normocephalic. Cardiovascular: S1, S2. Respiratory system: Has evidence of good air entry bilaterally. Abdomen: Soft, nontender. No masses felt. Extremities: Has edema present in both lower extremities. Central nervous system: No obvious focal deficits noted. LABS: WBC is 10.31, hematocrit is 54.4, with a platelet count of 188,000. AB.31/76/54/88.9%. Sodium is 141, potassium 4.2, chloride is 100, bicarb 32, BUN is 12, creatinine 0.8. Carcinoembryonic antigen level 40.4. X-ray chest shows cardiomegaly with pulmonary edema. ASSESSMENT AND PLAN: 1. Acute hypercapnic respiratory failure. Continue the patient on BiPAP as well as oxygen. Continue to follow up on patient's clinical progression including chest x-ray as well as arterial blood gases. The patient is being followed by the pulmonary team. 2. Chronic obstructive pulmonary disease exacerbation. Maintain patient on nebulized bronchodilators, steroids, as well as antibiotics. 3. Probable metastatic disease. CT scan of the brain shows evidence of a mass lesion about 9 mm with surrounding evidence of vasogenic edema. The patient is currently on steroids. CT scan of his chest showed evidence of mediastinal adenopathy. CT scan of the abdomen shows evidence of minimal splenomegaly, periaortic as well as external iliac adenopathy. The patient probably has metastatic disease. Of note, his carcinoembryonic antigen level is elevated. Oncology has been consulted. The patient will need tissue for diagnosis. 4. Diabetes mellitus. Continue blood sugar monitor as well as sliding scale insulin. 5. Bilateral lower extremity cellulitis. Continue IV antibiotics. 6. Congestive heart failure. Maintain patient on diuretics. Monitor intakes and outputs, as well as daily weights. 7. A 2D echocardiogram report pending. 8. Erythrocytosis most likely secondary to chronic obstructive pulmonary disease/hypoxia. Follow up on red cell count. 9. Deep vein thrombosis prophylaxis. Sequential compression devices. 10. Gastrointestinal prophylaxis. Proton-pump inhibitors. cc: Chalino Rosas MD
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
--- NOTE | 2018-12-28 13:56 | EEG REPORT ---
DATE: 12/27/2018 EEG #: [id number]. DATE OF STUDY: 12/28/2018. COMMENT: This is a digitally recorded EEG done portably in the ICU on a patient with abnormal brain MRI, history suggesting sleep apnea, recent altered awareness and recovery. There is question of seizure. FINDINGS: During waking, medium amplitude 9-10 hertz posterior rhythm is present symmetrically and reacts at times to eye opening. Background contains polymorphic and rhythmic theta frequencies over the frontal and central regions symmetrically. Drowsing was prominent throughout the record and stage II sleep was recorded with symmetric features. Photic stimulation did not significantly alter the record. Hyperventilation was not done. No definite epileptiform discharge was identified. INTERPRETATION: Normal electroencephalogram. CORRELATION: The absence of epileptiform discharges on a single EEG does not exclude a clinical diagnosis of seizures, but there is nothing on this record to suggest the presence of a seizure disorder. cc: MD Asya Olivares III, MD
--- NOTE | 2018-12-28 18:18 | GASTROENTEROLOGY CONSULTATION ---
DATE: 12/28/2018 REASON FOR CONSULTATION: elevated CEA HPI: Mr. Puri is a 53 year old man with HTN, DM2, GERD, CHF, tobacco abuse, morbid obesity, SRIDHAR, and COPD noncompliant with home O2 and inhalers who was admitted with AMS and hypoxic/hypercapnic respiratory failure requiring initiation of BiPAP. He was started on antibiotics for LE cellulitis and blood culture growing GPC. Workup for AMS was revealing for two brain nodules, one with associated vasogenic edema raising the concern for underlying malignancy. Follow-up CEA was elevated at 40.4. The patient denies personal or FHx of GI malignancies. No prior EGD/colonoscopy. The patient denies any GI complaints including abdominal pain, melena, abnormal weight loss, change in bowel habits, or hematochezia. He says his SOB is at baseline. +3 pillow orthopnea, LE edema. He is currently not interested in colonoscopy workup to rule out colon cancer at this time. ROS: as per HPI; otherwise 12-point ROS negative PMH: HTN, DM2, GERD, CHF, tobacco abuse, morbid obesity, SRIDHAR and COPD noncompliant with home O2 and inhalers PSH: None FH: No FHx of GI malignancies SH: 2ppd smoker; reports smoking since 15 years old. "Case of beer will last a couple of months". Smokes marijuana and uses "norco" MEDS: Lasix ALL: NKDA PHYSICAL EXAMINATION: Vital Signs: Temperature 98.2, heart rate 87, respiratory rate 18, blood pressure 113/72, O2 saturation 98% on 5 liters nasal cannula. GEN: awake, alert, NAD HEENT: anicteric, MMM NECK: thick neck, no LAD PULM: decreased BS throughout, end-expiratory wheeze CV: RRR, no mrg ABD: protrudent (at baseline), NT, NABS, no rebound or guarding, no ascites EXT: no c/c, 1-2+ pedal edema NEURO: nonfocal; ambulatory LABS: CEA 40 Hgb 16.[address] C/A/P: IMPRESSION: 1. Mediastinal adenopathy which on balance is worse than on 04/12/2014. Improved pulmonary parenchymal findings from that time. 2. Minimal splenomegaly and periaortic and external iliac adenopathy. Adenopathy just above the hiatus and in the right retrocrural space. In view of the lack of an obvious primary malignancy, lymphoma should be considered. 3. Cholelithiasis. A/P: Mr. Puri is a 53 year old man with HTN, DM2, GERD, CHF, tobacco abuse, obesity, and COPD noncompliant with home O2 and inhalers who was admitted with AMS and hypoxic/hypercapnic respiratory failure who was incidentally found to have elevated CEA during malignancy workup to explain brain nodules. There are multiple malignancies (breast, pancreatic, lung, thyroid) and non-malignant causes for elevated CEA including smoking and pulmonary infections. Brain mets would be atypical for CRC. Typically, we do not check CEA unless patient already has known malignancy as it is primarily used to track response to treatment and remission. The patient is currently not interested in further workup for GI malignancies including EGD and colonoscopy although he is overdue for age appropriate screening. He is not interested in further GI workup at this time. #Elevated CEA: unclear etiology; CRC unlikely etiology of brain lesions #Hypoxic/hypercapnic respiratory failure: followed by pulmonary; on steroids, abx; BiPAP #Cellulitis/GPC in blood: on abx per ID #AMS: resolved with Bipap #Brain nodules: unclear etiology; question mets ?lymphoma on ddx #Tobacco abuse: smoking cessation Will sign off. Please call with questions or concerns. [facility]
[2018-12-28] MEDS: MAXIPIME 2 GM in NS 100 ML IV SCH (20:12)
--- NOTE | 2018-12-28 21:39 | INFECTIOUS DISEASE PROGRESS NO ---
DATE: 12/28/2018 PRESENT ILLNESS: Mr. Puri has bilateral lower extremity cellulitis. There is also a gram- negative isidra growing in his sputum with interstitial opacities noted on the chest x-ray which may represent pneumonia. He also has 1 out of 2 blood cultures with a coagulation- negative staph, which most likely is a contaminant. The other culture is preliminary with no report thus far. MEDICATIONS: He has been receiving Kefzol 2 g IV every 8 hours and IV vancomycin per pharmacy dosing. PHYSICAL EXAMINATION: Vital Signs: Temp is 98, pulse rate 94, respiratory rate 20, blood pressure 126/63, O2 sat is 95% on 4 L nasal cannula. General: This is a morbidly obese, chronically ill appearing male. He is angry, irritable and cursing, most likely due to a lack of his usual 2 packs of cigarettes per day. HEENT: Atraumatic, normocephalic. Oral mucous membranes are pink and moist. Eyes are bloodshot. Conjunctivae are pink. His face is flushed. Neck: Supple. Trachea is midline. Cardiovascular: Heart rate and rhythm are regular. Normal sinus rhythm on the monitor. Pedal and radial pulses are palpable bilaterally. Respiratory: Lung sounds are clear in the upper lobes. Diminished in the bases. Integumentary: He has erythematous areas noted from head to toe with more splotchy areas noted to his abdomen and left lower extremity. Abdomen: Protuberant. Obese. Bowel sounds are active. Neurologic: He is awake, alert and oriented. Able to get up to the side of the bed without assistance. LABORATORY AND X-RAY: Today, his white count is 10.31, hemoglobin 16.7, platelet count 188,000 on 4 L nasal cannula. This morning his pH was 7.31 pCO2 76, PO2 54, HCO3 30.9. Creatinine is 0.8. Estimated GFR is greater than 60. His blood cultures drawn yesterday show one which is preliminary and the other which is growing a coag-negative Staphylococcus, which is most likely a contaminant. There is a gram-negative isidra growing in his sputum. Chest x-ray today shows increased interstitial opacities with cardiomegaly and pulmonary edema. ASSESSMENT AND PLAN: Mr. Puri is being treated for bilateral lower extremity cellulitis and a possible pneumonia. There is a gram-negative isidra growing in his sputum, and a previous chest x- ray showed some stable, faint, interstitial infiltrates bilaterally. So, at this point, we think he has pneumonia and we will be switching his medications from Ancef and vancomycin to cefepime 2 g IV every 8 hours. The vancomycin was ordered for the gram-positive coccus that was growing yesterday; however, since that is a coag-negative staph, that will not need treatment due to the likelihood that this is a contaminant. The patient is extremely irritable and states that he plans to leave by noon tomorrow if he does not have a clear picture of what is going on with his health. I have talked to him about the fact that we are awaiting some cultures , but it looks like there is a pneumonia as well as a cellulitis of his lower extremities. He cannot be reasoned with at this point, but just continues to curse. We will see how the cultures look tomorrow. These plans have been discussed with and recommended by Dr. Pedraza. COMORBIDITIES: For Mr. Puri include congestive heart failure, polycythemia vera, 2 pack a day cigarette smoking with COPD, home O2, and diabetes mellitus. Dictated by CONG Rome for Miki Pedraza MD This chart was documented by, CONG Rome and accurately reflects the services performed, treatment plan and medical decisions as attested by the providers signature Miki Pedraza MD. cc: MD MAYUR Vega
[2018-12-29] MEDS: HUMALOG SUBQ SCH ×4 (00:51→16:54)
[2018-12-29] MEDS: MAXIPIME 2 GM in NS 100 ML IV SCH ×2 (03:10→11:48)
[2018-12-29] MEDS: SOLU-MEDROL IV SCH ×2 (03:11→11:48)
[2018-12-29] MEDS: DUONEB (A & A) INH SCH ×6 (03:38→23:15)
[2018-12-29 04:55] LABS: HEMATOCRIT 53.4 % (42.0-52.0); HEMOGLOBIN 16.4 g/dL (14.0-18.0); LYMPH# 0.89 X1000 (1.2-3.4); LYMPH% 7.8 % (20.5-51.1); MCH 28.7 PG (27-31); MCHC 30.7 g/dL (33-37); MCV 93.5 FL (81-99); MONO# 0.48 X1000 (0.11-0.59); MONO% 4.2 % (1.7-9.3); MPV 9.6 FL (7.4-10.4); NEUT# 10.05 X1000 (1.4-6.5); PLT 187 X1000 (130-400); RBC 5.71 XMIL (4.7-6.1); RDW 14.2 % (11.5-14.5); WBC 11.42 X1000 (4.8-10.8)
[2018-12-29 05:11] LABS: ALLEN TEST YES; BE 9.2 mmoll (-3.0-3.0); BLOOD TYPE ARTERIAL; HCO3-(ACT) 32.1 mmoll (20.0-26.0); PO2(98.6) 104 mmHg (60-100); SAMPLE BLOOD; pH(98.6) 7.36 (7.35-7.45)
[2018-12-29 05:12] LABS: MODALITY CANNULA; PCO2(98.6) 66 mmHg (35-45)
[2018-12-29 05:39] LABS: AGAP 8; BUN 19 mg/dL (8-22); CALCIUM 8.6 mg/dL (8.8-10.2); CHLORIDE 97 mmol/L (98-107); COSMO 286; CREATININE 0.8 mg/dL (0.7-1.2); ESTIMATED GFR > 60; GLUCOSE 242 mg/dL (70-104); POTASSIUM 5.1 mmol/L (3.5-5.1); SODIUM 138 mmol/L (136-145); TCO2 33 mmol/L (25-35)
[2018-12-29] MEDS: PROTONIX IV SCH (06:07)
[2018-12-29] MEDS: SODIUM CHLORIDE 0.9% INJ SCH (06:07)
--- NOTE | 2018-12-29 07:32 | Diag Imaging Result Doc PS360 ---
EXAM: CHEST-1 VIEW INDICATION: copd TECHNIQUE: One view COMPARISON: 12/28/2018 FINDINGS: Interstitial thickening suggesting edema and pulmonary venous congestion is stable. No new consolidation is identified. Cardiac silhouette is stable. IMPRESSION: Stable chest. Electronically signed by Milton Pruitt 12/29/2018 7:30 AM
--- NOTE | 2018-12-29 13:29 | HEMO/ONC CONSULTATION ---
DATE: 12/29/2018 CHIEF COMPLAINT: We are being consulted for further evaluation of patient's elevated CEA and lymphadenopathy. HISTORY OF PRESENT ILLNESS: Mr. Puri is a 53-year-old male that presented to the emergency department on 12/26/2018, complaining of elevated blood sugar, altered mental status. The patient was admitted, and he was found to have hypoxic respiratory failure. While in the ER, placed on BiPAP and was admitted at that time for further evaluation and management. Since being admitted, patient has had a CT of the head that shows enhancing nodule in the left frontal and right cerebellar hemispheres consistent with metastatic disease or cerebral lymphoma. The patient also had a CT of the chest, abdomen, and pelvis that shows some mediastinal adenopathy that has slightly worsened since previous CT. The patient also has a lymph node on the right side of his neck that is palpable. PAST MEDICAL HISTORY: Patient has history of hypertension, COPD, congestive heart failure, diabetes mellitus. PAST SURGICAL HISTORY: None reported. FAMILY HISTORY: Unknown. SOCIAL HISTORY: Patient continues to be a 2 pack-a-day smoker. Denies any alcohol or illicit drug use. ALLERGIES: No known drug allergies. HOME MEDICATIONS: Not being reconciled as of yet. REVIEW OF SYSTEMS: Negative other than is noted in HPI. PHYSICAL EXAM: Vital Signs: Temperature 98.7 degrees, heart rate 68, respiratory rate 13, blood pressure 147/77, and 97% on BiPAP. General: Patient is awake, lying in bed, in no acute distress noted while on BiPAP. HEENT: Anicteric. Pupils PERRLA. Mucous membranes noted to be dry. Neck: Supple. Trachea midline. No JVD. Lymph node Survey: Palpable lymph node to the right side of his neck. Cardiovascular: S1, S2. Chest: Bilateral breath sounds, diminished bilaterally. Abdomen: Soft, nontender. Bowel sounds present in all 4 quadrants. No hepatosplenomegaly noted. Skin: Warm, dry, and intact. No petechiae, no clubbing, no rashes, no cyanosis. Neurologic: Alert and oriented x3. No focal deficits noted. LABORATORY DATA: White cell count 11.4, hemoglobin 16.4, hematocrit 33.4, platelets are 187. Potassium 5.1, BUN 19, creatinine 0.8. RADIOLOGY REPORTS: Chest x-ray shows interstitial thickening, suggesting edema and pulmonary venous congestion, continues to be stable. CT of the head: Enhancing nodule in the left frontal and right cerebral hemispheres consistent with metastatic disease or cervical lymphoma. Chest, abdomen, and pelvis CT shows mediastinal adenopathy which is worse than compared to 04/12/2014, improved pulmonary parenchymal findings, minimal splenomegaly and periaortic external iliac adenopathy with adenopathy just above the hiatus and in the right retrocrural space. Lymphoma should be considered. Cholelithiasis. ASSESSMENT AND PLAN: 1. Probable metastatic disease: The patient has a palpable lymph node to the right side of the neck as well as metastasis to the brain and increased mediastinal adenopathy on CT scans. Once patient's respiratory status gets better, the patient will need a biopsy of that lymph node to the right side of the neck. He will continue to monitor and follow up at this time. 2. Acute hypoxic respiratory failure: The patient is slowly getting better. Continued to follow with pulmonology and primary medical team. 3. Chronic obstructive pulmonary disease. Continue recommendations by primary medical team and pulmonology. 4. Diabetes mellitus. Aware. Continue as per medical team. 5. Bilateral lower extremity cellulitis. Continue antibiotics per primary medical team. 6. Congestive heart failure: Continue diuretics per primary medical team. 7. Deep venous thrombosis prophylaxis: Continue sequential compression devices as ordered. 8. Gastrointestinal prophylaxis. Continue on proton pump inhibitors as ordered. 9. Plan of care discussed with Dr. Stone. Dictated by CONG Strange for Ryan Stone MD cc: CONG Strange MD [facility]
--- NOTE | 2018-12-29 14:43 | PROGRESS NOTE ---
DATE: 12/29/2018 SUBJECTIVE: The patient is awake. Not in any obvious distress. OBJECTIVE: Vital signs: Vital signs are as follows: Temperature 97.6 degrees, pulse 91, respiratory rate 21, blood pressure is 105/79, oxygen saturation is 97%. HEENT: Patient is atraumatic, normocephalic. Cardiovascular: S1, S2. Respiratory system: Has evidence of good air entry bilaterally. Abdomen: Obese nontender. No masses felt. Extremities: Has some erythema with edema in the lower extremity. Central nervous system: No obvious focal deficit noted. LABS: WBC is 11.42, hematocrit is 53.4, platelet count of 187. ABG is 7.3/66/104. Chemistry: Sodium is 138, potassium is 5.1, chloride is 97, bicarbonate 30. BUN is 19, creatinine 0.8. ASSESSMENT AND PLAN: 1. Acute hypercapnic respiratory failure secondary to chronic obstructive pulmonary disease. Maintain patient on oxygen and use BiPAP if needed. Follow up on the patient's clinical progression, including chest x-ray, as well as arterial blood gases. The patient is being followed up by the pulmonary team. 2. Chronic obstructive pulmonary disease exacerbation. Continue nebulized bronchodilators, steroids, as well as antibiotics. 3. Probable metastatic disease. CT scan of the head shows a mass lesion of about 9 mm with some evidence of ascitic edema. Also has a CT of his chest with mediastinal adenopathy. CT scan of the abdomen showed evidence of minimal splenomegaly, jovany aortic as well as external iliac adenopathy. The patient probably has metastatic disease and will need tissue for diagnosis. I think the most logical approach will be to request for mediastinoscopy in order to get tissue for diagnosis. 4. Diabetes mellitus. Blood sugar monitor, as well as sliding scale insulin. 5. Bilateral lower extremity cellulitis. Will continue intravenous antibiotics. 6. Congestive heart failure. Stable. Monitor intakes and outputs, as well as daily weights. Maintain patient on diuretics. 7. Erythrocytosis secondary to chronic obstructive pulmonary disease. We will follow up on red cell count. 8. Deep vein thrombosis prophylaxis. Sequential compression devices. 9. Gastrointestinal prophylaxis. Proton pump inhibitor. cc: Chalino Rosas MD
--- NOTE | 2018-12-29 14:56 | Diag Imaging Result Doc PS360 ---
EXAM: CT NECK W/WO CONTRAST 12/29/2018 HISTORY: metastatic disease TECHNIQUE: This exam was performed using automated exposure control, adjustment of mA or kV according to patient size, and/or use of iterative reconstruction technique. COMMENT: There is apparent right paratracheal adenopathy, supraclavicular adenopathy particularly on the right side where there is a node measuring over 2.9 cm in diameter. This is also somewhat spherical in shape. The orbits are normal in appearance. The visualized paranasal sinuses are clear. The left mastoid air cells are largely underpneumatized. The salivary glands are symmetrical in appearance. The nasopharynx and pharynx are unremarkable. There is no evidence of significant adenopathy otherwise. IMPRESSION: Supraclavicular adenopathy particularly on the right. Electronically signed by Alban Kearns 12/29/2018 2:54 PM
--- NOTE | 2018-12-29 17:15 | GASTROENTEROLOGY PROGRESS NOTE ---
DATE: 12/29/2018 SUBJECTIVE: He is resting in bed. He is feeling better. He denies any complaints. Denies any nausea, vomiting, vomiting blood, or passing blood in the stools. OBJECTIVE: Vital signs: Temperature 98.7 degrees, pulse 78, respiratory rate 20, blood pressure 147/70, saturating 93% on 6 L nasal cannula. Body weight of 338 pounds 7 ounces. BMI 45.9 kg. General: The patient is morbidly obese, lying in bed, in no acute distress. HEENT: No pallor. No icterus. Pupils equal, react to light. Neck: Supple. Abdomen: Obese, soft, nontender, nondistended. No guarding or rebound. Extremities: No cyanosis, clubbing. Neurologic: He is awake, alert, oriented. LABS: Hemoglobin and hematocrit is 16.4 and 53.4, white count of 11.42, platelet count of 187,000. ABG showing pH 7.36, pCO2 66, PO2 104, this is on 32% FiO2. Sodium 130, potassium 5.1, chloride 97, bicarb 30, anion gap of 8, BUN of 19, creatinine 0.8, glucose of 242, calcium is 8.6. His CEA was 40.4 and plasma lactate of 2.4. IMAGING: Chest x-ray showed stable chest. IMPRESSION AND PLAN: 1. Elevated CEA. We discussed the option of doing EGD and colonoscopy. The patient would prefer it to be done as an outpatient. According to him, he will be getting out of the hospital very soon and he will see as an outpatient. I encouraged the importance of being seen and having an endoscopy with colonoscopy because of elevated CEA, and he acknowledged understanding. 2. Bilateral lower extremity cellulitis and possible pneumonia. He has a gram- negative isidra growing in his sputum. He is on cefepime IV q.[address] Pedraza. 3. Chronic smoker. He smokes 2 packs a day. I counseled him to quit smoking. 4. Chronic obstructive pulmonary disease. Patient was counseled to quit smoking. 5. Diabetes mellitus. Per the primary care team. 6. Congestive heart failure. Aware. 7. Polycythemia vera. Aware. 8. Acute hypercarbic respiratory failure is improved. 9. Deep venous thrombosis prophylaxis with SCDs. 10. Gastrointestinal prophylaxis with PPIs. 11. Abnormal imaging with possible mass lesion around 9 mm in the brain. He is currently on steroids and CT scan showing evidence of mediastinal adenopathy. Oncology has been consulted. The above plan was discussed with the patient and the nursing staff and all questions answered. Will sign off at this time. The patient will see us as an outpatient. cc: MD Chalino Villegas MD Natalie McCay, CRNP MTDD
--- NOTE | 2018-12-29 19:36 | GENERAL SURGERY CONSULTATION ---
DATE: 12/29/2018 REASON FOR CONSULTATION: Lymph node biopsy. REQUESTING PHYSICIAN: Dr. Rosas. HISTORY OF PRESENT ILLNESS: This is a 53-year-old male who was brought to the emergency room secondary to decreased responsiveness. He was found to be in acute hypoxemic, hypercarbic respiratory failure, as well as elevated blood sugars, bilateral lower extremity edema, cellulitis, and shortness of breath. He has undergone extensive workup including head CT, chest, abdomen and pelvis CT, and neck CT which are notable for elevated CEA, worsening mediastinal adenopathy, periaortic and external iliac adenopathy, right supraclavicular adenopathy, and enhancing left frontal lobe mass suspicious for a metastatic lesion of unknown primary. He currently is being treated for COPD exacerbation with acute respiratory failure. This is being managed with BiPAP and nasal cannula, as well as steroids and antibiotics. His blood sugars have improved. He is on antibiotics for the lower extremity cellulitis and I have been consulted for lymph node biopsy for diagnosis and further treatment. PAST MEDICAL HISTORY: As above in HPI. Also, congestive heart failure, hypertension, morbid obesity, tobacco abuse, gastroesophageal reflux. PAST SURGICAL HISTORY: None. FAMILY HISTORY: Reviewed and noncontributory. SOCIAL HISTORY: He is a 2 pack per day smoker. He drinks beer regularly. Also he smokes marijuana. ALLERGIES: No known drug allergies. CURRENT MEDICATIONS: AA neb, cefepime, Humalog, Solu-Medrol, Zofran, Protonix. REVIEW OF SYSTEMS: Ten systems reviewed and negative except as noted above. PHYSICAL EXAMINATION: Vital Signs: Temperature 98, pulse 87, respirations 20, blood pressure 147/58, O2 saturation 87 to 99%. General: He is a well-developed male who looks slightly older than his stated age, in no acute distress, but sickly appearing nonetheless. HEENT: Normocephalic, atraumatic. Extraocular muscles intact. Pupils equal, round, reactive to light. Sclerae anicteric. Neck: Supple. No thyromegaly. There is a palpable node in the right supraclavicular region. CV: Regular rate and rhythm. Respiratory: Bilateral breath sounds with some wheeze. No increased work of breathing. GI: Obese. No obvious organomegaly, hernias, mass, or tenderness. Extremities: There is bilateral lower extremity brawny edema and mild erythema of the pretibial areas. Musculoskeletal: Moves all extremities equally and well. LABORATORY: White blood cell count 11, hemoglobin is 16, hematocrit 53, platelet count 187,000. PH 7.36, pCO2 66, PaO2 104, bicarb 32, base excess 9. Electrolytes reviewed and notable for blood sugars in the mid 200s. IMAGING: As described above in the HPI. ASSESSMENT AND PLAN: This is a 53-year-old male with lymphadenopathy, acute on chronic respiratory failure. I do recommend an excisional cervical or supraclavicular lymph node biopsy in the near future. I do think given his acute respiratory exacerbation it would be prudent to treat him a little longer prior to putting him to sleep because of the risk of prolonged mechanical ventilation needs in the setting. I have discussed with him pursuing this early next week prior to discharge versus short-term followup as an outpatient. He is agreeable to either, but I think he prefers to go home and come back. He wants to speak to his children who live out of town. I will reconvene with him and the team tomorrow. cc: Jason Bloom MD
[2018-12-30] MEDS: MAXIPIME 2 GM in NS 100 ML IV SCH ×2 (00:30→09:06)
[2018-12-30] MEDS: SOLU-MEDROL IV SCH ×3 (00:30→16:54)
[2018-12-30] MEDS: HUMALOG SUBQ SCH ×5 (00:30→23:24)
[2018-12-30] MEDS: DUONEB (A & A) INH SCH ×6 (03:15→23:25)
[2018-12-30 05:29] LABS: ALLEN TEST YES; BE 10.6 mmoll (-3.0-3.0); BLOOD TYPE ARTERIAL; METHB 0.7 % (0.0-1.5); O2(CT) 23.4 mL/dL (15.0-23.0); O2HB 93.7 % (95.0-99.0); PO2(98.6) 79 mmHg (60-100); SAMPLE BLOOD; SAO2 95.3 % (95.0-100.0); THB 17.8 g/dL (11.5-17.4); pH(98.6) 7.37 (7.35-7.45)
[2018-12-30 05:31] LABS: MODALITY BI PAP; PCO2(98.6) 69 mmHg (35-45)
--- NOTE | 2018-12-30 06:36 | Diag Imaging Result Doc PS360 ---
EXAM: CHEST-1 VIEW HISTORY: copd TECHNIQUE: Portable chest single view COMPARISON: 12/29/2018 FINDINGS: The lungs are well expanded. Cardiomegaly and pulmonary edema persist. No consolidation. No pleural effusions identified. IMPRESSION: Stable chest. Electronically signed by Ford Ocasio 12/30/2018 6:34 AM
[2018-12-30] MEDS: PROTONIX IV SCH (07:02)
[2018-12-30 07:22] LABS: BASO# 0.02 X1000 (0.0-0.2); BASO% 0.2 % (0.0-0.8); EOS# 0.09 X1000 (0.0-0.7); HEMATOCRIT 55.8 % (42.0-52.0); HEMOGLOBIN 17.6 g/dL (14.0-18.0); LYMPH# 1.89 X1000 (1.2-3.4); MCHC 31.5 g/dL (33-37); MCV 91.9 FL (81-99); MONO# 0.73 X1000 (0.11-0.59); MONO% 8.5 % (1.7-9.3); MPV 10.2 FL (7.4-10.4); NEUT# 5.86 X1000 (1.4-6.5); NEUT% 68.3 % (42.2-75.2); PLT 115 X1000 (130-400); RBC 6.07 XMIL (4.7-6.1); RDW 14.6 % (11.5-14.5); WBC 8.59 X1000 (4.8-10.8)
[2018-12-30 07:45] LABS: AGAP 10; BUN 18 mg/dL (8-22); CALCIUM 8.8 mg/dL (8.8-10.2); CHLORIDE 96 mmol/L (98-107); COSMO 279; CREATININE 0.7 mg/dL (0.7-1.2); ESTIMATED GFR > 60; GLUCOSE 92 mg/dL (70-104); POTASSIUM 4.6 mmol/L (3.5-5.1); SODIUM 139 mmol/L (136-145); TCO2 33 mmol/L (25-35)
--- NOTE | 2018-12-30 08:41 | HEMO/ONC PROGRESS NOTE ---
DATE: 12/30/2018 SUBJECTIVE: The patient complains to be slightly short of breath. No other complaints at this time. OBJECTIVE: Vital Signs: Temperature 97.4 degrees, heart rate 90, respiratory rate 20, blood pressure 141/77, satting 95% on nasal cannula. General: Patient is awake, sitting up in bed, no acute distress noted. HEENT: Anicteric. Pupils PERRLA. Mucous membranes moist. Cardiovascular: S1, S2. Regular rate and rhythm. Chest: Bilateral breath sounds diminished bilaterally. Abdomen: Soft, nontender. Bowel sounds present in all 4 quadrants. Neurologic: Alert and oriented x3. No focal deficits noted. LABORATORY DATA: White blood cell count 8.59, hemoglobin is 17.6, hematocrit 55.8, platelets are 115. Potassium 4.6, BUN 18, creatinine 0.7. ASSESSMENT/PLAN: 1. Possible metastatic disease: Surgeon has been consulted for biopsy of that cervical lymph node. When those pathology results return, will follow up outpatient to discuss results. 2. Acute hypoxic respiratory failure: Patient's shortness of breath slowly continues to improve. Continue recommendations per primary medical team and pulmonology. 3. Chronic obstructive pulmonary disease: Continue recommendations per primary team and pulmonology. 4. Deep venous thrombosis prophylaxis: Continue sequential compression devices. Continue to have patient get out of bed as much as possible. 5. Gastrointestinal prophylaxis: Continue proton pump inhibitors as ordered. 6. Supportive care: The patient will continue exercises as instructed. Patient will continue to get stronger. Dictated by CONG Strange for Ryan Stone MD Patient seen and examined. Surgery has been consulted for lymph node biopsy. We will plan to see him back for pathology results and further discussion outpatient. I will sign off at this time. Please call with any questions or concerns. Ryan Stone M.D. cc: CONG Strange MD MTDD
--- NOTE | 2018-12-30 09:38 | GENERAL SURGERY PROGRESS NOTE ---
DATE: 12/30/2018 SUBJECTIVE: The patient is doing okay this morning. He says he feels better. He is using BiPAP at night and has been on nasal cannula during the day, although currently he is on room air. OBJECTIVE: Vital Signs: Temperature 97.4 degrees, pulse 104, respirations 20, blood pressure 141/77, O2 saturation 93% on room air. General: He is awake, alert, oriented x4. No acute distress. Respiratory: No work of breathing. Neck: The right supraclavicular lymph node is palpable. LABORATORY: CBC reviewed and unremarkable. ABG: His pH is 7.37, pCO2 69, PaO2 79, bicarbonate 33. Electrolytes reviewed and unremarkable. IMAGING: Chest x-ray shows a stable chest with cardiomegaly and pulmonary edema, but no consolidation. No pleural effusions. ASSESSMENT AND PLAN: A 53-year-old male with lymphadenopathy, chronic obstructive pulmonary disease exacerbation. He is agreeable to proceed with right cervical lymph node biopsy. His breathing and respiratory status may be at baseline. I have discussed with him staying in the hospital until Wednesday and obtaining a lymph node biopsy then versus being discharged per the primary team and following up with me in my office next week to set up the biopsy in the near future. I think that is what he actually prefers. I am willing to do it either way. Please notify us if he does indeed stay, so we can put him on the schedule for Wednesday. cc: Jason Bloom MD
--- NOTE | 2018-12-30 14:48 | ECHO REPORT ---
ORDER DATE: 12/30/2018 ECHOCARDIOGRAPHIC MEASUREMENTS: 1. Interventricular septum 1.4 2. Left ventricular posterior wall 1.4. 3. Diastolic diameter 4.5. 4. Left atrium 4.1. 5. Aorta 3.6. SUMMARY: 1. Technically suboptimal study. Very poor acoustic window. Pulmonic valve not well visualized. 2. Aortic valve leaflets not well visualized. 3. Mitral valve was normal. 4. Tricuspid valve was normal. 5. Normal left ventricular cavity size. Estimated ejection fraction of 60%. Endocardium not well visualized in all views. Optison was used to assess left ventricular systolic function. 6. Right ventricle is dilated. 7. There was trace tricuspid regurgitation. Cannot comment on the tricuspid velocity. Technically suboptimal study. 8. There was trivial mitral regurgitation. 9. No aortic stenosis or regurgitation. 10. There is no pericardial effusion. cc: MD Chalino Torres MD
--- NOTE | 2018-12-30 15:48 | PROGRESS NOTE ---
DATE: 12/30/2018 SUBJECTIVE: Patient resting in bed. Has family present in the room. OBJECTIVE: Vital signs: Temperature is 98 degrees, pulse 79, respirations 18, blood pressure 156/64. Oxygen saturation is 95%. HEENT: Atraumatic. Normocephalic. Cardiovascular: S1, S2. Respiratory system: Has evidence of good air entry bilaterally. Abdomen: Obese. Nontender. No masses felt. Extremities: Does have edema in both lower extremities with evidence of erythematous changes. Central nervous system: No obvious focal deficit noted. LABORATORY DATA: WBC is 8.59, hematocrit 55.8 with a platelet count of 115,000. ABG 7.37/69/79/95.3%. Chemistry: Sodium 139, potassium 4.6, chloride is 96, bicarb 23, BUN is 18, creatinine 0.7. X-ray chest shows evidence of cardiomegaly with pulmonary edema. CT scan of the neck shows supraclavicular adenopathy, particularly on the right. ASSESSMENT AND PLAN: 1. Acute hypercapnic respiratory failure secondary to chronic obstructive pulmonary disease exacerbation. Maintain patient on oxygen and use BiPAP as needed. Follow up on patient's clinical progression. The patient is being followed by the pulmonary team. 2. Chronic obstructive pulmonary disease exacerbation. Maintain patient on nebulized bronchodilators, steroids, as well as antibiotics. 3. Metastatic disease. CT scan of the head shows evidence of a mass which is about 9 mm with some evidence of surrounding edema. CT of the chest shows evidence of mediastinal adenopathy. CT of the abdomen and pelvis showed evidence of minimal splenomegaly, periaortic as well as external iliac adenopathy. CT scan of the chest shows evidence of supraclavicular adenopathy particularly on the right. Surgical team was consulted and the plan is possibly to have 1 of the neck lymph nodes biopsied. I did discuss with the patient I think his best option will be for him to remain in the hospital to have this lesion biopsied, so we can know what his primary diagnosis is. 4. Diabetes mellitus. Continue blood sugar monitoring, as well as directed insulin. 5. Bilateral lower extremity cellulitis. Continue intravenous antibiotics. 6. Congestive heart failure. X-ray chest shows evidence of pulmonary edema. We will maintain patient on diuretics, monitor I Os and daily weights. I will proceed and obtain a 2D echo of the heart to assess the patient's current ejection fraction. 7. Erythrocytosis most likely secondary to chronic obstructive pulmonary disease with hypoxia. 8. Deep vein thrombosis prophylaxis. Sequential compression devices. 9. Gastrointestinal prophylaxis. Proton pump inhibitors. cc: Chalino Rosas MD
[2018-12-30] MEDS: LEVAQUIN PO SCH (16:54)
--- NOTE | 2018-12-30 17:22 | INFECTIOUS DISEASE PROGRESS NO ---
DATE: 12/30/2018 PRESENT ILLNESS: Mr. Puri has a bilateral lower extremity cellulitis and an Enterobacter pneumonia. MEDICATIONS: He has been receiving cefepime 2 g IV every 8 hours for the last 2 days. PHYSICAL EXAMINATION: Vital Signs: Temperature is 98 degrees, pulse rate 89, respiratory rate 18, blood pressure 156/64. O2 saturation is 95% on room air. General: This is a morbidly obese, chronically ill-appearing, middle-aged gentleman. He is sitting up in bed, currently in no acute distress. HEENT: Atraumatic, normocephalic. Oral mucous membranes are pink and moist. Conjunctivae are pink. Neck: Supple. Trachea is midline. Cardiovascular: Heart rate and rhythm are regular. Normal sinus rhythm on the monitor. Pedal and radial pulses are +2 bilaterally. Respiratory: Lung sounds are clear in the upper lobes, diminished in the bases. Abdomen: Soft, obese, and nontender. Bowel sounds are active. Neurologic: He is awake, alert, and oriented, and able to move around independently. LABORATORY AND X-RAY: Today, his white count is 8.59, hemoglobin 17.6, platelet count 115,000. On a 30% BiPAP this morning, his pH was 7.37, pCO2 69, PO2 79, HCO3 33. Creatinine is 0.7. Estimated GFR is greater than 60. His sputum has grown Enterobacter cloacae complex, and blood culture show 1 out of 2 coagulase-negative staph, which is a contaminant. Chest x-ray today shows lungs are well-expanded. No consolidation. No pleural effusions. Stable chest. There is some possible pulmonary edema present. ASSESSMENT AND PLAN: Mr. Puri seems to be improving with his pneumonia, as well as his bilateral lower extremity cellulitis. There is some splotchy erythema to his calves bilaterally. However, this is improved. He states his breathing is better. However, he continues to have some mild shortness of breath, which he states is normal for him. Since his Enterobacter is multidrug susceptible, we will go ahead and discontinue his IV cefepime and start him on Levaquin 750 mg by mouth daily. The patient wants to go home today. However, this does not seem feasible, and he has been told that if he leaves, he will have to leave against medical advice, per Dr. Rosas. These plans have been discussed with and recommended by Dr. Pedraza. COMORBIDITIES: Morbid obesity, congestive heart failure, polycythemia vera, cigarette smoking with COPD and home oxygen, diabetes mellitus, and possible metastatic disease. Dictated by [facility] for Miki Pedraza MD This chart was documented by, [facility] and accurately reflects the services performed, treatment plan and medical decisions as attested by the providers signature Miki Pedraza MD. cc: Miki Pedraza MD
[2018-12-31] MEDS: SOLU-MEDROL IV SCH ×3 (00:40→16:41)
[2018-12-31] MEDS: DUONEB (A & A) INH SCH ×6 (03:25→23:15)
[2018-12-31 04:36] LABS: ALLEN TEST YES; BE 8.4 mmoll (-3.0-3.0); BLOOD TYPE ARTERIAL; HCO3-(ACT) 31.3 mmoll (20.0-26.0); METHB 0.9 % (0.0-1.5); O2(CT) 23.7 mL/dL (15.0-23.0); O2HB 93.1 % (95.0-99.0); PO2(98.6) 78 mmHg (60-100); SAMPLE BLOOD; SAO2 94.7 % (95.0-100.0); THB 18.1 g/dL (11.5-17.4); pH(98.6) 7.38 (7.35-7.45)
[2018-12-31 04:41] LABS: MODALITY CANNULA; PCO2(98.6) 62 mmHg (35-45)
--- NOTE | 2018-12-31 06:31 | Diag Imaging Result Doc PS360 ---
EXAM: CHEST-1 VIEW HISTORY: copd TECHNIQUE: Portable chest single COMPARISON: 12/30/2018 FINDINGS: The lungs are well expanded. The heart is mildly enlarged and there is mild central vascular prominence. No consolidation. No pleural effusions identified. IMPRESSION: Stable exam. Electronically signed by Ford Ocasio 12/31/2018 6:29 AM
[2018-12-31] MEDS: PROTONIX IV SCH (06:32)
[2018-12-31] MEDS: HUMALOG SUBQ SCH ×4 (06:32→22:24)
[2018-12-31 07:37] LABS: HEMATOCRIT 54.3 % (42.0-52.0); HEMOGLOBIN 17.3 g/dL (14.0-18.0); LYMPH# 0.39 X1000 (1.2-3.4); MCH 28.8 PG (27-31); MCHC 31.9 g/dL (33-37); MCV 90.5 FL (81-99); MONO# 0.26 X1000 (0.11-0.59); MONO% 3.3 % (1.7-9.3); MPV 9.6 FL (7.4-10.4); NEUT# 7.13 X1000 (1.4-6.5); NEUT% 91.7 % (42.2-75.2); PLT 178 X1000 (130-400); RDW 14.3 % (11.5-14.5); WBC 7.78 X1000 (4.8-10.8)
[2018-12-31 07:40] LABS: AGAP 10; ALB/GLOB RATIO 1.4; ALBUMIN 3.9 g/dL (3.5-5.0); ALKALINE PHOSPHATASE 74 U/L (32-122); BUN 18 mg/dL (8-22); CALCIUM 8.5 mg/dL (8.8-10.2); CHLORIDE 95 mmol/L (98-107); COSMO 281; CREATININE 0.7 mg/dL (0.7-1.2); ESTIMATED GFR > 60; GLUCOSE 253 mg/dL (70-104); GOT 25 U/L (10-34); GPT 69 U/L (10-44); SODIUM 135 mmol/L (136-145); TCO2 30 mmol/L (25-35); TOTAL BILIRUBIN 0.71 mg/dL (0.20-1.00); TOTAL PROTEIN 6.7 g/dL (6.3-8.3)
[2018-12-31 07:43] LABS: LYMPHS 12 % (21-51); SEGS 88 % (42-75)
[2018-12-31] MEDS: NICODERM PATCH TD SCH ×2 (09:04→09:17)
[2018-12-31] MEDS: LEVAQUIN PO SCH (09:05)
--- NOTE | 2018-12-31 13:44 | PROGRESS NOTE ---
DATE: 12/31/2018 SUBJECTIVE: This morning Mr. Puri refers to be doing a lot better. Denies any complaints. He is no more confused. OBJECTIVE: Vital signs: Blood pressure is 147/71, pulse is 88, respirations 18 , temperature 97.7 degrees. The patient was saturating 92% on room air. General: Mr. Puri is a 53-year-old morbidly obese, male. BMI is 44.1. He was sitting at the edge of the bed, did not seem to be in any cardiopulmonary distress. HEENT: Mucosa is pink and moist. Anicteric. Acyanotic. Neck: Supple. Chest: Air entry is bilaterally reduced, but did not hear any crepitations or rhonchi. Cardiovascular: Regular rate and rhythm. No murmurs, no rubs, no gallops. Abdomen: Soft. It is distended but nontender. Bowel sounds present. Extremities: Old , nonpitting edema with eczematous changes consistent with stasis dermatitis. TORPEDO MAN: The patient is awake, alert, and oriented. There is no focal neurological deficit. LABORATORY DATA: WBC is 7.78, hemoglobin is 17.3, platelet count of 178,000. Sodium is 135, potassium is 5.0, chloride 95, bicarbonate is 30. The patient's pCO2 this morning was down to 62. IMAGING STUDIES: The imaging studies have also been reviewed. A CT scan of the head did show a left frontal lobe 9 mm mass with surrounding vasogenic edema, that is suspicious for neoplasm, probably metastatic from an unknown primary. A CT scan of the chest, abdomen and pelvis did show mediastinal adenopathy, minimal splenomegaly, cholelithiasis. Chest x-ray is unremarkable. A CT scan of the neck shows supraclavicular adenopathy, particularly on the right. ASSESSMENT: 1. Unresponsiveness on presentation, likely due to CO2 narcosis. CO2 level has significantly improved and the patient's mentation has also recovered. 2. Acute on chronic hypercarbic respiratory failure. 3. Morbid obesity, with features suspicious for Pickwickian syndrome and obstructive sleep apnea. Pulmonary Medicine is on board. 4. Polycythemia, likely reactive to the chronic hypercarbia and hypoxemia from obstructive sleep apnea, as well as obesity hypoventilation syndrome. The patient's hemoglobin is 17.3, with hematocrit of 54.3. I think he will probably benefit from therapeutic phlebotomy. We will, however, defer that to Pulmonary Medicine for their recommendations on that topic. 5. COPD, on home O2 oxygen. We will continue with the current management. Sputum culture positive for Enterobacter cloacae complex. The patient is on Levaquin and ID is on board. 6. Diabetes mellitus, controlled. 7. Bilateral lower extremity swelling, improved. I think this is secondary to either longstanding venous insufficiency as well as possible cor pulmonale from right heart failure. Ultrasound did reveal a right ventricle was dilated. Ejection fraction was 60% on the left, and the right ventricle could be dilated as a result of the obstructive sleep apnea and obesity hypoventilation syndrome. 8. Probable metastatic disease. The primary is unknown. Patient does have multiple lymphadenopathies everywhere that raises the suspicion for lymphoma. The patient is pending lymph node removal for analysis, hopefully on Wednesday. 9. Diabetes mellitus, with presenting A1c of 6.6 noted. PLAN: In general, I feel Mr. Puri is fairly stable, got admitted, has been in the hospital for the past 5 days, initially because of altered mental status and multiple falls. Saturation was about 84% on presentation, with elevated pCO2 levels. All these have been corrected with BiPAP therapy. The patient's mentation is now a lot better. During the workup it is also picked up that he has multiple lymph adenopathies which is suspicious for a primary metastatic disease or lymphoma. The work up is in progress. Hopefully, biopsy is done Wednesday and then we go from there. cc: MD MAYUR Gooden
--- NOTE | 2018-12-31 13:58 | GENERAL SURGERY PROGRESS NOTE ---
DATE: 12/31/2018 TIME SEEN: 0950 hours in the morning. SUBJECTIVE: Mr. Puri is sitting up, doing generally well. He has no distress. His right cervical adenopathy is palpated. The plan is a biopsy if he remains in the hospital on Wednesday by Dr. Bloom. No new recommendations. cc: Kyle Fernandez MD
[2018-12-31] MEDS: MELATONIN PO SCH (22:27)
[2019-01-01] MEDS: SOLU-MEDROL IV SCH ×3 (00:47→15:37)
[2019-01-01] MEDS: DUONEB (A & A) INH SCH ×6 (03:15→23:20)
[2019-01-01 04:31] LABS: ALLEN TEST YES; BE 4.1 mmoll (-3.0-3.0); BLOOD TYPE ARTERIAL; HCO3-(ACT) 28.1 mmoll (20.0-26.0); METHB 0.6 % (0.0-1.5); O2(CT) 25.1 mL/dL (15.0-23.0); O2HB 96.1 % (95.0-99.0); PO2(98.6) 124 mmHg (60-100); SAMPLE BLOOD; SAO2 97.4 % (95.0-100.0); THB 18.5 g/dL (11.5-17.4); pH(98.6) 7.32 (7.35-7.45)
[2019-01-01 04:34] LABS: MODALITY BI PAP; PCO2(98.6) 64 mmHg (35-45)
[2019-01-01] MEDS: PROTONIX IV SCH (06:30)
[2019-01-01] MEDS: SODIUM CHLORIDE 0.9% INJ SCH (06:30)
[2019-01-01] MEDS: HUMALOG SUBQ SCH ×4 (06:31→20:56)
[2019-01-01 06:42] LABS: HEMATOCRIT 56.7 % (42.0-52.0); HEMOGLOBIN 17.7 g/dL (14.0-18.0); LYMPH# 0.33 X1000 (1.2-3.4); LYMPH% 4.3 % (20.5-51.1); MCH 28.5 PG (27-31); MCHC 31.2 g/dL (33-37); MCV 91.2 FL (81-99); MONO# 0.45 X1000 (0.11-0.59); MONO% 5.9 % (1.7-9.3); MPV 9.5 FL (7.4-10.4); NEUT% 89.8 % (42.2-75.2); PLT 192 X1000 (130-400); RBC 6.22 XMIL (4.7-6.1); RDW 14.7 % (11.5-14.5); WBC 7.68 X1000 (4.8-10.8)
[2019-01-01 07:11] LABS: AGAP 11; BUN 18 mg/dL (8-22); CHLORIDE 94 mmol/L (98-107); COSMO 275; CREATININE 0.9 mg/dL (0.7-1.2); ESTIMATED GFR > 60; GLUCOSE 221 mg/dL (70-104); POTASSIUM 4.8 mmol/L (3.5-5.1); SODIUM 133 mmol/L (136-145); TCO2 28 mmol/L (25-35)
[2019-01-01 07:15] LABS: LYMPHS 4 % (21-51); SEGS 96 % (42-75)
--- NOTE | 2019-01-01 07:38 | GENERAL SURGERY PROGRESS NOTE ---
DATE: 01/01/2019 SUBJECTIVE: Mr. Puri is doing generally well. He is sitting up, afebrile, no pulmonary distress. He is awaiting his right cervical lymph node biopsy, which will be scheduled for tomorrow by Dr. Bloom. cc: Kyle Fernandez MD
[2019-01-01] MEDS: LEVAQUIN PO SCH (08:02)
[2019-01-01] MEDS: NICODERM PATCH TD SCH (08:02)
--- NOTE | 2019-01-01 14:16 | PROGRESS NOTE ---
DATE: 01/01/2019 SUBJECTIVE: The patient is awake. Not in any obvious distress. OBJECTIVE: Vital signs are as follows: Temperature 98.7 degrees, pulse is 89, respirations 20, blood pressure 151/68, oxygen saturation is 92%.HEENT: Atraumatic, normocephalic. Cardiovascular: S1, S2. Respiratory: Has evidence of good air entry bilaterally. Abdomen: Obese, nontender. No masses felt. Extremities: Possible edema in the lower extremities. Central nervous system: No obvious focal deficit noted. LABS: WBC 7.68, hematocrit is 36.7 with a platelet count of 192,000, ABG 7.32/64/124/97.4. Sodium 133, potassium 4.8, chloride is 94, bicarb 28, BUN is 18, creatinine 0.9. ASSESSMENT AND PLAN: 1. Acute hypercapnic respiratory failure secondary to COPD exacerbation. Maintain patient on oxygen. Use BiPAP as needed. Follow up on patient's clinical progression. Pulmonary team following. 2. Chronic obstructive pulmonary disease exacerbation. Continue nebulized bronchodilators, steroids, as well as antibiotics. 3. Metastatic disease. The patient is scheduled to have lymph node biopsy from one of these neck lymph glands tomorrow. 4. Diabetes mellitus. Continue blood sugar monitoring as well as sliding scale insulin. 5. Bilateral lower extremity cellulitis. Continue intravenous antibiotics. 6. Congestive heart failure. Maintain patient on diuretics. Monitor intakes and outputs, as well as daily weights. 7. Erythrocytosis, secondary to COPD/hypoxia. 8. DVT prophylaxis. Sequential compression devices. 9. Gastrointestinal prophylaxis. PPI. cc: Chalino Rosas MD
[2019-01-01] MEDS: MELATONIN PO SCH (20:56)
[2019-01-02] MEDS: SOLU-MEDROL IV SCH ×2 (00:57→08:17)
[2019-01-02] MEDS: DUONEB (A & A) INH SCH ×3 (03:10→11:06)
[2019-01-02 05:24] LABS: ALLEN TEST YES; BE 3.7 mmoll (-3.0-3.0); BLOOD TYPE ARTERIAL; HCO3-(ACT) 27.4 mmoll (20.0-26.0); METHB 0.5 % (0.0-1.5); O2(CT) 22.8 mL/dL (15.0-23.0); PO2(98.6) 55 mmHg (60-100); SAMPLE BLOOD; SAO2 89.4 % (95.0-100.0); THB 18.6 g/dL (11.5-17.4); pH(98.6) 7.32 (7.35-7.45)
[2019-01-02 05:26] LABS: MODALITY ROOM AIR; O2HB 87.7 % (95.0-99.0); PCO2(98.6) 63 mmHg (35-45)
[2019-01-02] MEDS: SODIUM CHLORIDE 0.9% INJ SCH (06:42)
[2019-01-02] MEDS: PROTONIX IV SCH (06:42)
[2019-01-02] MEDS: HUMALOG SUBQ SCH ×2 (06:43→12:48)
[2019-01-02 06:49] LABS: HEMATOCRIT 59.4 % (42.0-52.0); HEMOGLOBIN 18.2 g/dL (14.0-18.0); IMM GRAN# 0.02 X1000 (0.0-0.04); IMM GRAN% 0.3 % (0.0-0.5); LYMPH# 0.31 X1000 (1.2-3.4); LYMPH% 3.9 % (20.5-51.1); MCH 28.3 PG (27-31); MCHC 30.6 g/dL (33-37); MCV 92.5 FL (81-99); MONO# 0.48 X1000 (0.11-0.59); MONO% 6.1 % (1.7-9.3); MPV 9.3 FL (7.4-10.4); NEUT# 7.06 X1000 (1.4-6.5); NEUT% 89.7 % (42.2-75.2); PLT 170 X1000 (130-400); RBC 6.42 XMIL (4.7-6.1); RDW 14.8 % (11.5-14.5); WBC 7.87 X1000 (4.8-10.8)
[2019-01-02 07:15] LABS: AGAP 8; BUN 21 mg/dL (8-22); CALCIUM 9.1 mg/dL (8.8-10.2); CHLORIDE 95 mmol/L (98-107); COSMO 276; CREATININE 0.9 mg/dL (0.7-1.2); ESTIMATED GFR > 60; GLUCOSE 210 mg/dL (70-104); POTASSIUM 5.3 mmol/L (3.5-5.1); SODIUM 133 mmol/L (136-145); TCO2 30 mmol/L (25-35)
[2019-01-02] MEDS: NICODERM PATCH TD SCH (08:21)
[2019-01-02] MEDS: LEVAQUIN PO SCH (08:21)
[2019-01-02] MEDS ORDERED: SENSORCAINE 0.5%-EPI 1:200,000 ONE (09:11)
[2019-01-02] MEDS ORDERED: VERSED ONE (09:16)
[2019-01-02] MEDS ORDERED: FENTANYL ONE (09:16)
[2019-01-02] MEDS ORDERED: DIPRIVAN 1% ONE (09:17)
[2019-01-02] MEDS ORDERED: XYLOCAINE-MPF 2% ONE (09:19)
[2019-01-02] MEDS ORDERED: XYLOCAINE 1% ONE (09:37)
--- NOTE | 2019-01-02 11:23 | OPERATIVE NOTE ---
PROCEDURE DATE: 01/02/2019 PREOPERATIVE DIAGNOSIS: Cervical lymphadenopathy. POSTOPERATIVE DIAGNOSIS: Cervical lymphadenopathy. PROCEDURE PERFORMED: Open cervical lymph node biopsy. SURGEON: Jason Bloom MD. ANESTHESIA: Local, MAC. ESTIMATED BLOOD LOSS: 40 mL. COMPLICATIONS: None apparent. SPECIMENS: Lymph node. FINDINGS: There was an irregularly shaped, large lymph node greater than 2 cm in greatest dimension, deep to the right sternocleidomastoid muscle. TECHNIQUE: The patient was brought to the operating room and placed supine on the table. His right neck was prepped and draped in the usual sterile fashion. IV sedation was induced. Half percent Marcaine and 1% lidocaine with epinephrine were used to anesthetize our incision which was made in the lower right neck. Dissection was then carried down through the platysma with cautery. I encountered the sternocleidomastoid muscle and retracted it medially. Posterior and deep to it, I was able to palpate the lymph node. I dissected it free from its surrounding muscular attachments with a Kittner dissector and a Blanca clamp. I divided small muscular attachments with cautery. Several lymphovascular pedicles were suture ligated with 3-0 Vicryl and divided with cautery. The lymph node was grasped with an Allis clamp and lifted ups and out of the wound. Once it was removed, some of the muscle was bleeding. I placed Surgicel on it and a couple of [id number] 3-0 Vicryl sutures. This controlled the bleeding. I then closed the platysma with interrupted 3-0 Vicryl and the skin with a running 4-0 subcuticular Monocryl and Steri- Strips. There were no apparent complications. She was awakened in stable condition and transferred to the recovery room. cc: Jason Bloom MD
[2019-01-02] MEDS ORDERED: NORCO-7.5 PO PRN (11:47)
[2019-01-02 12:15] VITALS: BP 162/87
[2019-01-02] MEDS: MORPHINE IV PRN (12:47)
--- NOTE | 2019-01-02 13:48 | INFECTIOUS DISEASE PROGRESS NO ---
DATE: 01/02/2019 PRESENT ILLNESS: The patient is being treated by me for bilateral leg cellulitis and an Enterobacter pneumonia. MEDICATIONS: The patient had been on cefepime and the patient was switched over to Levaquin p.o. PHYSICAL EXAMINATION: Vital Signs: Temperature is 97.8 degrees, pulse is 82, respirations 22, blood pressure 162/87. General: This is a morbidly obese, middle-aged male. He is in no acute distress. Head, Eyes, Ears, Nose, and Throat: He can hear my spoken words and see near objects. He does not have any white coating on his tongue. Neck: No stiffness. Thorax: The patient has a dressing over the area where a lymph node was biopsied. The dressing is intact. Lungs: Clear to auscultation. Cardiovascular: Heart rate is regular. Abdomen: Soft and nontender. Extremities: Both legs are less swollen and erythematous than they were when the patient was admitted. According to the patient, his legs are at baseline for him. Neurologic: The patient is alert. He can move his extremities. There is no tremor. LAB AND X-RAY: Chest x-ray shows no consolidation. CBC shows a white count of 7870, hemoglobin 18.2, and platelet count 170,000. Creatinine is 0.9. GFR is greater than 60. Blood gases show a pH of 7.32, a PO2 of 55, and a pCO2 of 63. ASSESSMENT AND PLAN: The patient has pneumonia and bilateral leg cellulitis. The pneumonia has cleared and the patient's legs are back where they normally are. I do not think that there is any cellulitis remaining. Some areas on the legs have a pinkish color but no real cellulitis. I do not think the patient requires anymore antibiotic therapy at this time. From my point of view, he can be discharged. I am available to see the patient on an as needed basis. I am signing off his case now. COMORBIDITIES: Morbid obesity, congestive heart failure, polycythemia vera, cigarette smoking, chronic obstructive pulmonary disease, diabetes mellitus, and possible metastatic cancer which the lymph node biopsy report pending. cc: Miki Pedraza MD
[2019-01-02] MEDS ORDERED: KAYEXALATE PO ONE (14:14)
--- NOTE | 2019-01-03 02:14 | DISCHARGE SUMMARY ---
ADMISSION DATE: 12/26/2018 DISCHARGE DATE: 01/02/2019 PRINCIPAL DIAGNOSIS: Acute hypercapnic respiratory failure. SECONDARY DIAGNOSES: 1. Chronic obstructive pulmonary disease exacerbation. 2. Metastatic disease. 3. Diabetes mellitus. 4. Bilateral lower extremity cellulitis. 5. Acute diastolic heart failure. 6. Polycythemia, secondary to chronic obstructive pulmonary disease/hypoxia. 7. Obesity. DISCHARGE MEDICATIONS: Keppra 500 mg p.o. twice a day, prednisone 50 mg p.o. daily for the next 5 days, then 10 mg p.o. daily for 5 days, then 5 mg p.o. daily for 5 days. Levaquin 500 mg p.o. daily for next 7 days. Combivent Respimat 1 puff every 6 hours. Advair Diskus 250/50 one puff twice a day. Lasix 40 mg p.o. daily. CONSULTATIONS DONE DURING THIS HOSPITAL STAY: Neurology, Dr. Asya Cummings. Pulmonology, Dr. Gomez. Gastroenterology, Dr. Som Malik. Infectious Disease, Dr. Mkii Pedraza. Hematology/Oncology, Dr. Ryan Stone. General Surgery, Dr. Kyle Fernandez. PROCEDURES DONE DURING THIS HOSPITAL STAY: Head CT 12/26/2018. CT scan of the chest, abdomen, and pelvis 12/27/2018. EEG 12/27/2018. Neck CT 12/29/2018. Echocardiogram 12/30/2018. Lymph node biopsy from the cervical group. This was done on 01/02/2019. HOSPITAL COURSE: Mr. Jatinder Puri is a 51-year-old male, and he does have a history of COPD. He was admitted to the hospital because of acute hypercapnic respiratory failure, as well as a COPD exacerbation. The patient required BiPAP, along with nebulized bronchodilators, steroids, as well as antibiotics. Also had evidence of cellulitis in both lower extremities, for which he was maintained on antibiotics. The patient was noted to have a left frontal lobe 9 mm mass, with surrounding evidence of vasogenic edema, suspicious for a neoplasm. The patient was seen by the Neurology team, and was maintained on steroids. Because of the concern for metastatic disease, we did obtain an image of the chest, abdomen, pelvis, as well as neck. CT scan of the chest did show evidence of mediastinal adenopathy, while CT scan of the abdomen showed evidence of minimal splenomegaly, periaortic, as well as external iliac, adenopathy. His carcinogenic embryonic antigen level was found to be elevated as well. We did consult GI for GI endoscopic studies. Patient was seen by Dr. Som Malik. CT scan of the neck showed evidence of supraclavicular adenopathy, particularly on the right. Patient had a lymph node biopsy from the supraclavicular group on 01/02/2019. Pathology is still pending. At this time, the patient can be discharged home. The patient would really like to be discharged home, and will prefer not to remain in the hospital at this time. He will need the following follow up appointments: He will need to follow up with Hematology/Oncology, Dr. Stone, and also Neurology, Dr. Asya Cummings, as well as a Pulmonology, Dr. Gomez. I explained to the patient the seriousness of his medical condition, especially with regards to possible metastatic disease, and the patient will also need to quit cigarette smoking as well. I have asked [employer] to help us in getting the patient home oxygen. cc: Chalino Rosas MD
--- NOTE | 2019-01-11 19:49 | DISCHARGE SUMMARY ---
ADMISSION DATE: 12/26/2018 DISCHARGE DATE: 01/02/2019 ADDENDUM REPORT We received the patient's pathology result back. 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 The further comments indicate that these immunomorphologic features are consistent with metastatic carcinoma with papillary features and could present a thyroid primary, but a lung primary cannot be completely excluded. cc: Chalino Rosas MD
== END 2019-01-02 14:55 | disposition home or self-care (01) | DRG 823 ==
LOC: ED 12:33 → EDIPHOLD 20:40 → SUATTDRO 20:40 → ICU 12-27 15:21 → 4N 12-29 15:09
PROVIDERS: ATTEND Internal Medicine
CPT/HCPCS: 70450; 70460; 70492; 71010; 71045; 71260; 74177; 80048; 80053; 81001; 81270; 82232; 82378; 82668; 82805; 82948; 83036; 83605; 83615; 83880; 84484; 85025; 85610; 85730; 87040; 87070; 87077; 87186; 87205; 87275; 87276; 87804; 88305; 93005; 93010; 93306; 94640; 94660; 94761; 94762; 94799; 95816; 96372; 96374; 96375; 96376; 99285; A9270; C8929; C9113; J0690; J0692; J1650; J1815; J1956; J2250; J2270; J2405; J2543; J2930; J3010; J3370; J7030; J7040; Q9957; Q9967; S0164; XXXXX